=== PATIENT | male | born 1950 | race Caucasian/White ===

== ENCOUNTER 2016-06-30 19:45 | Inpatient (IN) | payer MEDICARE, BC ==
[2016-06-30] MEDS ORDERED: SODIUM CHLORIDE 0.9% 500 ML IV STA (20:47)
--- NOTE | 2016-06-30 21:20 | ED ---
Weakness HPI - General Chief complaint: Weakness Stated complaint: Poss Stroke Time Seen by Provider: 06/30/16 20:46 Source: patient, RN notes reviewed Mode of arrival: wheelchair Limitations: no limitations - History of Present Illness Initial comments: This a 65-year-old male presents emergency Department with multiple complaints. Patient states he just generalized feels weak. Patient states this morning around 10:00 he became very lightheaded, dizzy and felt disorientated. Patient states he was walking into [place]. Patient states that he went to breakfast prior to this and felt fine and came home when symptoms started. He states right before symptoms started he had an episode of diarrhea and he has some mild abdominal cramping. Patient denies any dysuria, hematuria. Patient states he is a diabetic and checked his blood sugar at that time and which was 2 :30. Patient states he did have one episode of mild chest discomfort but states that it only lasted a few seconds he says is a dull ache. Patient denies shortness of breath this time. Patient does have a history of DVTs, PE. Patient states he is on Coumadin and has a Crow filter. Patient denies any focal weakness or deficit. - Related Data Home Medications Medication Instructions Recorded Confirmed Erythromycin Base [Erythromycin] 500 mg PO BID 06/30/16 06/30/16 Insulin Glulisine [Apidra Solostar] 35 unit SQ BID 06/30/16 06/30/16 Levothyroxine Sodium [Synthroid] 100 mcg PO DAILY 06/30/16 06/30/16 Losartan [Cozaar] 25 mg PO DAILY 06/30/16 06/30/16 Metoprolol Succinate (ER) [Toprol 25 mg PO DAILY 06/30/16 06/30/16 Xl] Pioglitazone [Actos] 15 mg PO DAILY 06/30/16 06/30/16 Warfarin [Coumadin] 7.5 mg PO DAILY 06/30/16 06/30/16 Allergies Allergy/AdvReac Type Severity Reaction Status Date / Time butorphanol [From Stadol] Allergy Severe Unknown Verified 06/30/16 20:55 Review of Systems ROS Statement: Those systems with pertinent positive or pertinent negative responses have been documented in the HPI. ROS Other: All systems not noted in ROS Statement are negative. Past Medical History Past Medical History: Diabetes Mellitus, Pulmonary Embolus (PE) History of Any Multi-Drug Resistant Organisms: None Reported Past Surgical History: Hernia Repair Additional Past Surgical History / Comment(s): green filled filter to heart, irregular heart beat Past Psychological History: Depression Smoking Status: Former smoker Past Alcohol Use History: None Reported Past Drug Use History: None Reported General Exam Limitations: no limitations General appearance: alert, in no apparent distress Head exam: Present: atraumatic, normocephalic, normal inspection Eye exam: Present: normal appearance, PERRL, EOMI. Absent: scleral icterus, conjunctival injection, periorbital swelling ENT exam: Present: normal exam, normal oropharynx, mucous membranes moist. Absent: TM's normal bilaterally, normal external ear exam, other (Tenderness to the left mastoid) Neck exam: Present: normal inspection, full ROM. Absent: tenderness, meningismus, lymphadenopathy Respiratory exam: Present: normal lung sounds bilaterally. Absent: respiratory distress, wheezes, rales, rhonchi, stridor Cardiovascular Exam: Present: regular rate, normal rhythm, normal heart sounds. Absent: systolic murmur, diastolic murmur, rubs, gallop, clicks GI/Abdominal exam: Present: soft, normal bowel sounds. Absent: distended, tenderness, guarding, rebound, rigid Back exam: Absent: CVA tenderness (R), CVA tenderness (L) Neurological exam: Present: alert, oriented X3, CN II-XII intact, reflexes normal, other (Finger to nose intact bilaterally without overshooting). Absent : motor sensory deficit Skin exam: Present: warm, dry, intact, normal color. Absent: rash Course Vital Signs 06/30/16 19:50 Temperature 97.4 F L Pulse Rate 91 Respiratory 18 Rate Blood Pressure 150/72 O2 Sat by Pulse 96 Oximetry EKG Findings - EKG Comments: EKG Findings:: EKG performed at 20:11 normal sinus rhythm with a rate of 89, OK interval 1:30, QRS duration 104, QT/QTC 384/467 Medical Decision Making - Medical Decision Making 65-year-old male presented for dizziness, generalized weakness not Feeling well. Patient be admitted to the hospital for possible TIA and treatment at this time for mastoiditis. - Lab Data Result diagrams: 06/30/16 21:50 06/30/16 21:50 Lab Results 04/10/17 04/10/17 04/10/17 Range/Units 21:50 21:50 21:50 WBC 6.9 (3.8-10.6) k/uL RBC 5.09 (4.30-5.90) m/uL Hgb 15.9 (13.0-17.5) gm/dL Hct 46.0 (39.0-53.0) % MCV 90.3 (80.0-100.0) fL MCH 31.2 (25.0-35.0) pg MCHC 34.5 (31.0-37.0) g/dL RDW 14.3 (11.5-15.5) % Plt Count 146 L (150-450) k/uL Neutrophils % 66 % Lymphocytes % 23 % Monocytes % 8 % Eosinophils % 1 % Basophils % 1 % Neutrophils # 4.6 (1.3-7.7) k/uL Lymphocytes # 1.6 (1.0-4.8) k/uL Monocytes # 0.5 (0-1.0) k/uL Eosinophils # 0.1 (0-0.7) k/uL Basophils # 0.0 (0-0.2) k/uL PT (9.0-12.0) sec INR (<1.1) APTT (22.0-30.0) sec Sodium 137 (137-145) mmol/L Potassium 3.9 (3.5-5.1) mmol/L Chloride 104 (98-107) mmol/L Carbon Dioxide 25 (22-30) mmol/L Anion Gap 8 mmol/L BUN 19 (9-20) mg/dL Creatinine 1.06 (0.66-1.25) mg/dL Est GFR (MDRD) Af Amer >60 (>60 ml/min/1.73 sqM) Est GFR (MDRD) Non-Af >60 (>60 ml/min/1.73 sqM) Glucose 238 H (74-99) mg/dL Calcium 9.1 (8.4-10.2) mg/dL Magnesium 2.0 (1.6-2.3) mg/dL Total Bilirubin 0.7 (0.2-1.3) mg/dL AST 20 (17-59) U/L ALT 32 (21-72) U/L Alkaline Phosphatase 53 (38-126) U/L Total Creatine Kinase 103 (55-170) U/L CK-MB (CK-2) 0.9 (0.0-2.4) ng/mL CK-MB (CK-2) Rel Index 0.9 Troponin I <0.012 (0.000-0.034) ng/mL Total Protein 6.2 L (6.3-8.2) g/dL Albumin 3.8 (3.5-5.0) g/dL Urine Color Urine Appearance (Clear) Urine pH (5.0-8.0) Ur Specific [place] (1.001-1.035) Urine Protein (Negative) Urine Glucose (UA) (Negative) Urine Ketones (Negative) Urine Blood (Negative) Urine Nitrite (Negative) Urine Bilirubin (Negative) Urine Urobilinogen (<2.0) mg/dL Ur Leukocyte Esterase (Negative) Urine RBC (0-5) /hpf Urine Bacteria (None) /hpf Urine Mucus (None) /hpf Influenza Type A RNA (Not Detectd) Influenza Type B (PCR) (Not Detectd) 06/30/16 06/30/16 06/30/16 Range/Units 21:50 21:50 21:50 WBC (3.8-10.6) k/uL RBC (4.30-5.90) m/uL Hgb (13.0-17.5) gm/dL Hct (39.0-53.0) % MCV (80.0-100.0) fL MCH (25.0-35.0) pg MCHC (31.0-37.0) g/dL RDW (11.5-15.5) % Plt Count (150-450) k/uL Neutrophils % % Lymphocytes % % Monocytes % % Eosinophils % % Basophils % % Neutrophils # (1.3-7.7) k/uL Lymphocytes # (1.0-4.8) k/uL Monocytes # (0-1.0) k/uL Eosinophils # (0-0.7) k/uL Basophils # (0-0.2) k/uL PT 16.8 H (9.0-12.0) sec INR 1.7 (<1.1) APTT 25.7 (22.0-30.0) sec Sodium (137-145) mmol/L Potassium (3.5-5.1) mmol/L Chloride (98-107) mmol/L Carbon Dioxide (22-30) mmol/L Anion Gap mmol/L BUN (9-20) mg/dL Creatinine (0.66-1.25) mg/dL Est GFR (MDRD) Af Amer (>60 ml/min/1.73 sqM) Est GFR (MDRD) Non-Af (>60 ml/min/1.73 sqM) Glucose (74-99) mg/dL Calcium (8.4-10.2) mg/dL Magnesium (1.6-2.3) mg/dL Total Bilirubin (0.2-1.3) mg/dL AST (17-59) U/L ALT (21-72) U/L Alkaline Phosphatase (38-126) U/L Total Creatine Kinase (55-170) U/L CK-MB (CK-2) (0.0-2.4) ng/mL CK-MB (CK-2) Rel Index Troponin I (0.000-0.034) ng/mL Total Protein (6.3-8.2) g/dL Albumin (3.5-5.0) g/dL Urine Color Yellow Urine Appearance Clear (Clear) Urine pH 5.5 (5.0-8.0) Ur Specific [place] 1.023 (1.001-1.035) Urine Protein Trace H (Negative) Urine Glucose (UA) 4+ H (Negative) Urine Ketones Negative (Negative) Urine Blood Trace H (Negative) Urine Nitrite Negative (Negative) Urine Bilirubin Negative (Negative) Urine Urobilinogen <2.0 (<2.0) mg/dL Ur Leukocyte Esterase Negative (Negative) Urine RBC <1 (0-5) /hpf Urine Bacteria Rare H (None) /hpf Urine Mucus Rare H (None) /hpf Influenza Type A RNA Not Detected (Not Detectd) Influenza Type B (PCR) Not Detected (Not Detectd) Disposition Clinical Impression: TIA (transient ischemic attack), Mastoiditis Disposition: ADMITTED IP TO THIS HOSP Condition: Good
--- NOTE | 2016-06-30 21:27 | XR ---
EXAMINATION TYPE: XR chest 2V DATE OF EXAM: 06/30/2016 9:18 PM COMPARISON: NONE HISTORY: Weakness and dizziness today. TECHNIQUE: Frontal and lateral views of the chest are obtained. FINDINGS: There is patchy left basilar atelectasis and/or infiltrate. Right lung is clear. No pleura l effusion or pneumothorax is seen bilaterally. The cardiac silhouette size is within normal limits. The osseous structures are intact. IMPRESSION: Patchy left basilar atelectasis and/or infiltrate.
--- NOTE | 2016-06-30 21:28 | CT ---
EXAMINATION TYPE: CT brain wo con DATE OF EXAM: 06/30/2016 9:16 PM HISTORY: Weakness today. Dizziness. CT DLP: 1060.60 mGycm. Automated Exposure Control for Dose Reduction was Utilized. TECHNIQUE: CT scan of the head is performed without contrast. COMPARISON: None. FINDINGS: There is no acute intracranial hemorrhage or midline shift identified. There is diffuse v entricular and sulcal prominence consistent with diffuse age-related cerebral atrophy. There is low- attenuation in the periventricular white matter consistent with chronic small vessel ischemic change. Air-fluid level is noted in visualized portion of left maxillary sinus. The globes are intact and th e remainder of the visualized sinuses are clear. Patchy opacification of left mastoid air cells is present. IMPRESSION: No acute intracranial hemorrhage or midline shift. There is mild diffuse age-related ce rebral atrophy and chronic small vessel ischemic change noted. Acute left maxillary sinus disease. P atchy opacity left mastoid air cells raises concern for left-sided mastoiditis, clinical correlation advised.
[2016-06-30 22:07] LABS: Basophils % (A) 1 %; CHCM 34.6; Eosinophils # (A) 0.1 k/uL (0-0.7); Eosinophils % (A) 1 %; HDW 2.83; HGB 15.9 gm/dL (13.0-17.5); Luc # (Auto) 0.14; Luc % (Auto) 2; Lymphocytes # (A) 1.6 k/uL (1.0-4.8); Lymphocytes % (A) 23 %; MCH 31.2 pg (25.0-35.0); MCHC 34.5 g/dL (31.0-37.0); MCV 90.3 fL (80.0-100.0); Monocytes # (A) 0.5 k/uL (0-1.0); Monocytes % (A) 8 %; Neutrophils # (A) 4.6 k/uL (1.3-7.7); Neutrophils % (A) 66 %; RBC 5.09 m/uL (4.30-5.90); RDW 14.3 % (11.5-15.5); WBC 6.9 k/uL (3.8-10.6); WBC (Perox) 6.78
[2016-06-30 22:16] LABS: Partial Thromboplastin Time 25.7 sec (22.0-30.0)
[2016-06-30 22:18] LABS: INR 1.7 (<1.1); Prothrombin Time 16.8 sec (9.0-12.0)
[2016-06-30 22:20] LABS: Appearance,Urine Clear (Clear); Bacteria,Urine Rare /hpf; Bilirubin,Urine Negative (Negative); Glucose,Urine (UA) 4+ (Negative); Ketones,Urine Negative (Negative); Leukocyte Esterase,Urine Negative (Negative); Mucus,Urine Rare /hpf; Nitrite,Urine Negative (Negative); PH, Urine 5.5 (5.0-8.0); Particle Count 490; Protein,Urine Trace (Negative); RBC,Urine <1 /hpf (0-5); Specific Gravity,Urine 1.023 (1.001-1.035); UA Billing (MACRO vs. MICRO) MICRO; Urobilinogen,Urine <2.0 mg/dL (<2.0)
[2016-06-30 22:25] LABS: ALT 32 U/L (21-72); AST 20 U/L (17-59); Alkaline Phosphatase 53 U/L (38-126); Anion Gap 8 mmol/L; Blood Urea Nitrogen 19 mg/dL (9-20); Calcium 9.1 mg/dL (8.4-10.2); Carbon Dioxide 25 mmol/L (22-30); Chloride 104 mmol/L (98-107); Glucose 238 mg/dL (74-99); Non-African American GFR(MDRD) >60 (>60 ml/min/1.73 sqM); Potassium 3.9 mmol/L (3.5-5.1); Sodium 137 mmol/L (137-145); Total Bilirubin 0.7 mg/dL (0.2-1.3); Total Protein 6.2 g/dL (6.3-8.2)
[2016-06-30 22:30] LABS: Creatine Kinase 103 U/L (55-170)
[2016-06-30 22:43] LABS: Creatine Kinase MB 0.9 ng/mL (0.0-2.4); Troponin I <0.012 ng/mL (0.000-0.034)
[2016-06-30] MEDS ORDERED: IV VANCOMYCIN PER PHARMACY 1 EACH MISC MISCELLANE PRN (23:10)
[2016-06-30] MEDS ORDERED: ASPIRIN 325 MG TAB PO STA (23:13)
[2016-06-30] MEDS ORDERED: VANCOMYCIN 1,750 MG in SODIUM CHLORIDE 0.9% 250 ML IVPB ONE (23:15)
[2016-07-01 00:13] LABS: Glucose,Whole Blood 156 mg/dL (75-99)
[2016-07-01 06:00] LABS: Glucose,Whole Blood 190 mg/dL (75-99)
[2016-07-01] MEDS: INSULIN LISPRO (humaLOG) 300 UNIT/3 ML VIAL SQ SCH ×5 (08:24→21:55)
[2016-07-01] MEDS ORDERED: VANCOMYCIN 1,750 MG in SODIUM CHLORIDE 0.9% 250 ML IVPB SCH ×2 (09:00→12:00)
--- NOTE | 2016-07-01 10:38 | US ---
EXAMINATION TYPE: US carotid duplex BILAT DATE OF EXAM: 07/01/2016 12:47 AM COMPARISON: NONE CLINICAL HISTORY: Stenosis. Dizziness EXAM MEASUREMENTS: RIGHT: Peak Systolic Velocity (PSV) cm/sec ----- Right CCA: 62.5 ----- Right ICA: 79.4 ----- Right ECA: 93.5 ICA/CCA ratio: 1.3 RIGHT: End Diastole cm/sec ----- Right CCA: 9.0 ----- Right ICA: 26.0 ----- Right ECA: 6.3 LEFT: Peak Systolic Velocity (PSV) cm/sec ----- Left CCA: 53.1 ----- Left ICA: 85.3 ----- Left ECA: 40.5 ICA/CCA ratio: 1.6 LEFT: End Diastole cm/sec ----- Left CCA: 11.1 ----- Left ICA: 20.6 ----- Left ECA: 6.3 VERTEBRALS (direction of flow): Right Vertebral: Antegrade Left Vertebral: Antegrade Tortuous vessels bilaterally. Mild plaque visualized bilaterally. No elevated velocities IMPRESSION: No hemodynamic significant stenosis of the proximal internal carotid arteries bilaterall y, an indirect measurement of carotid stenosis
[2016-07-01 12:11] LABS: Hemoglobin A1C 9.8 % (4.2-6.1)
[2016-07-01 12:35] LABS: Glucose,Whole Blood 321 mg/dL (75-99)
--- NOTE | 2016-07-01 16:39 | P.HPIM ---
History of Present Illness H&P Date: 07/01/16 Chief Complaint: Dizziness 65-year-old gentleman with history of hypertension diabetes comes in the hospital with the sudden onset complains of dizziness and gait instability for a few hours prior to admission. Patient states that he was in good health prior to this episode. Was concern came in to the emergency room. Patient underwent a computed tomography scan of the head which did not reveal any acute abnormalities in the brain however there was findings of sinusitis and mastoiditis to be correlated clinically. Patient denies having any fevers chills headaches blurry vision nausea vomiting. Does state to have some decreased hearing bilaterally in the recent times. At the time of my evaluation patient states that he is feeling significantly better complaints reported as of now. Patient denies having any history of previous strokes. Symptoms are not reproducible with the change in movement of his head or with the going from sitting to standing or from laying down or sitting up. Orthostatics were also negative. Gait was assessed at bedside and did not seem to have any problems with ambulation time EKG did not reveal any ST-T wave changes Review of Systems All systems: negative (Noted in HPI) Past Medical History Past Medical History: Diabetes Mellitus, Deep Vein Thrombosis (DVT), Eye Disorder, Pulmonary Embolus (PE), Thyroid Disorder Additional Past Medical History / Comment(s): Current bilateral groin bacterial infection-on ABX, rapid heart beat at times, on medication to protect kidneys, not hypertensive, IDDM type II, hypothyroid, diverticular dx, macular hole L retina d/t injury as a child. History of Any Multi-Drug Resistant Organisms: None Reported Past Surgical History: Hernia Repair, Orthopedic Surgery, Tonsillectomy Additional Past Surgical History / Comment(s): green filled filter, umbilical hernia repair, L knee arthroscopy, bilateral inguinal hernia repairs, colonoscopy. Additional Past Anesthesia/Blood Transfusion Reaction / Comment(s): Pt was told by anesthesiologist to never receive Stadol again-had difficulty "getting me out of it." Past Psychological History: Depression Additional Psychological History / Comment(s): Pt states he is depressed from the recent loss of his spouse (03/28/16). He denies suicidal thoughts or plans. He now lives alone with 1 cat. He is independent. Smoking Status: Former smoker Past Alcohol Use History: None Reported Additional Past Alcohol Use History / Comment(s): Pt started smoking in 1966 and quit in 1980. Past Drug Use History: None Reported - Past Family History Father Family Medical History: Myocardial Infarction ([place]) Additional Family Medical History / Comment(s): Father at the age of 59yrs from a [place] Mother Additional Family Medical History / Comment(s): Mother in her mid 60's from CHF Medications and Allergies Home Medications Medication Instructions Recorded Confirmed Type Erythromycin Base [Erythromycin] 500 mg PO BID 06/30/16 06/30/16 History Insulin Glulisine [Apidra Solostar] 35 unit SQ BID 06/30/16 06/30/16 History Levothyroxine Sodium [Synthroid] 100 mcg PO DAILY 06/30/16 06/30/16 History Losartan [Cozaar] 25 mg PO DAILY 06/30/16 06/30/16 History Metoprolol Succinate (ER) [Toprol 25 mg PO DAILY 06/30/16 06/30/16 History Xl] Pioglitazone [Actos] 15 mg PO DAILY 06/30/16 06/30/16 History Warfarin [Coumadin] 7.5 mg PO DAILY 06/30/16 06/30/16 History Allergies Allergy/AdvReac Type Severity Reaction Status Date / Time butorphanol [From Stadol] Allergy Severe Unknown Verified 06/30/16 20:55 Physical Exam Vitals: Vital Signs Temp Pulse Resp BP Pulse Ox 07/01/16 12:13 97.3 F L 85 16 148/75 07/01/16 10:13 83 16 150/79 94 L 07/01/16 08:13 98 F 88 16 150/79 92 L 07/01/16 06:16 82 16 151/86 94 L Intake and Output 07/01/16 07/01/16 07/01/16 06:59 14:59 22:59 Output Total 600 Balance -600 Output: Urine 600 Other: # Voids 2 Physical exam Gen. appearance oriented 3 in no distress Neck is supple no JVD Lungs good air entry clear to auscultation no rhonchi or wheezing Heart S1-S2 heard regular rate and rhythm no murmurs appreciated Abdomen is soft nontender no organomegaly bowel sounds are intact Neurologically cranial nerves II-12 grossly intact no focal motor or sensory deficits noted No dysdiadochokinesia appreciated gait appears to be within normal limits Skin no abnormalities appreciated Results CBC & Chem 7: 06/30/16 21:50 06/30/16 21:50 Labs: Abnormal Lab Results - Last 24 Hours (Table) 07/01/16 07/01/16 Range/Units 05:58 12:06 POC Glucose (mg/dL) 190 H 321 H (75-99) mg/dL Thrombosis Risk Factor Assmnt - Choose All That Apply Any of the Below Risk Factors Present?: Yes Each Factor Represents 1 point: Obesity (BMI >25) Other Risk Factors: Yes Each Risk Factor Represents 2 Points: Age 61-74 years Other congenital or acquired thrombophilia - If yes, enter type in comment: No Thrombosis Risk Factor Assessment Total Risk Factor Score: 3 Thrombosis Risk Factor Assessment Level: Moderate Risk Assessment and Plan Plan: #1 gait instability and dizziness that was persistent for a short period of time rule out acute CVA. Other differentials include hypoglycemia. #2 history of diabetes myelitis to #3 history of pulmonary embolism in the past on anticoagulation para graft #4 obesity #5 remote history of tobacco use #6 history of hypertension Plan Continue telemetry monitoring. Carotid studies were ordered. A neurology consultation will be obtained if this was a TIA kind of episode patient will be continued on aspirin and a statin. Patient's home regimen will be started ensure no further episodes of hypo-or hyperglycemia. Patient is encouraged to ambulate. An echocardiogram will also be obtained at the time Repeat labs in the a.m. Here for likely need another 24 hours and thereafter be discharged home.
[2016-07-01 17:31] LABS: Glucose,Whole Blood 293 mg/dL (75-99)
[2016-07-01] MEDS: LEVOTHYROXINE 100 MCG TAB PO SCH (17:32)
[2016-07-01] MEDS ORDERED: WARFARIN 7.5 MG TAB PO SCH (18:00)
[2016-07-01 21:06] LABS: Glucose,Whole Blood 135 mg/dL (75-99)
[2016-07-01] MEDS: AMOXIC-POT CLAV 500-125 MG 1 EACH TAB PO SCH (21:54)
[2016-07-01] MEDS: ASPIRIN 325 MG TAB PO SCH ×2 (21:54→22:02)
[2016-07-02 06:37] LABS: Glucose,Whole Blood 199 mg/dL (75-99)
[2016-07-02] MEDS: INSULIN LISPRO (humaLOG) 300 UNIT/3 ML VIAL SQ SCH ×3 (07:06→11:57)
[2016-07-02] MEDS: LEVOTHYROXINE 100 MCG TAB PO SCH (07:06)
[2016-07-02] MEDS ORDERED: VANCOMYCIN TROUGH DUE 1 EACH MISC MISCELLANE ONE (08:00)
[2016-07-02 08:15] LABS: Basophils % (A) 1 %; CH 30.9; CHCM 34.2; Eosinophils # (A) 0.1 k/uL (0-0.7); Eosinophils % (A) 2 %; HDW 2.86; HGB 15.8 gm/dL (13.0-17.5); Luc % (Auto) 2; Lymphocytes # (A) 1.4 k/uL (1.0-4.8); Lymphocytes % (A) 25 %; MCH 29.9 pg (25.0-35.0); MCHC 32.8 g/dL (31.0-37.0); MCV 91.1 fL (80.0-100.0); Monocytes # (A) 0.3 k/uL (0-1.0); Monocytes % (A) 6 %; Neutrophils # (A) 3.7 k/uL (1.3-7.7); Neutrophils % (A) 65 %; RBC 5.27 m/uL (4.30-5.90); RDW 14.3 % (11.5-15.5); WBC 5.7 k/uL (3.8-10.6); WBC (Perox) 5.96
[2016-07-02 08:16] LABS: INR 1.8 (<1.1); Prothrombin Time 17.1 sec (9.0-12.0)
[2016-07-02 08:18] LABS: ALT 34 U/L (21-72); AST 24 U/L (17-59); Alkaline Phosphatase 44 U/L (38-126); Anion Gap 7 mmol/L; Blood Urea Nitrogen 16 mg/dL (9-20); Calcium 9.1 mg/dL (8.4-10.2); Carbon Dioxide 24 mmol/L (22-30); Chloride 107 mmol/L (98-107); Cholesterol 174 mg/dL (<200); Glucose 216 mg/dL (74-99); HDL Cholesterol 41 mg/dL (40-60); Non-African American GFR(MDRD) >60 (>60 ml/min/1.73 sqM); Sodium 138 mmol/L (137-145); Total Bilirubin 0.8 mg/dL (0.2-1.3); Total Protein 6.2 g/dL (6.3-8.2); Triglycerides 131 mg/dL (<150)
[2016-07-02] MEDS: AMOXIC-POT CLAV 500-125 MG 1 EACH TAB PO SCH (08:58)
[2016-07-02] MEDS ORDERED: LOSARTAN 25 MG TAB PO SCH (09:00)
[2016-07-02] MEDS ORDERED: PIOGLITAZONE 15 MG TAB PO SCH (09:00)
[2016-07-02] MEDS ORDERED: METOPROLOL SUCCINATE (ER) 25 MG TAB.ER.24H PO SCH (09:00)
--- NOTE | 2016-07-02 09:41 | CONS ---
DATE OF CONSULTATION: 07/01/2016 CHIEF COMPLAINT: Transient ischemic attack. HISTORY OF PRESENT ILLNESS: Mr. Carter is a pleasant 65-year-old male who is being evaluated by the Neurology Service per the request of Dr. Alfaro for a transient ischemic attack. The patient was brought into [facility] emergency room with the main complaint of generalized weakness, but he was also complaining of a sudden onset of gait instability. The patient describes his symptoms as disequilibrium and denies any vertigo or lateralizing weakness. His symptoms lasted several hours and resolved spontaneously. 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 He has had previous history of deep venous thrombosis and pulmonary embolism. CT of the brain was done in the emergency room which showed no acute intracranial abnormalities. There was generalized atrophy and small vessel ischemic changes. The study also showed evidence of left acute maxillary sinusitis and left mastoiditis. His carotid Doppler showed no hemodynamically significant stenosis. His comprehensive metabolic profile showed no significant abnormalities except for elevated serum glucose at 321. The patient does have history of diabetes that is not well controlled. His hemoglobin A1c was 9.8. His CBC was normal except for mild thrombocytopenia at 146,000. His INR was 1.7 on admission. His urinalysis was normal. At the time of my evaluation, the patient is sitting at the edge of his bed and appears to be in no acute distress. He denies any neurological symptoms at this time. PAST MEDICAL HISTORY: Hereditary coagulopathy, diabetes, history of pulmonary embolism and deep venous thrombosis, depression, history of Crow filter placement, history of hernia repair. SOCIAL HISTORY: The patient is a former smoker. He denies any alcohol or drug use. HOME MEDICATIONS: Reviewed in the chart. ALLERGIES: STADOL. REVIEW OF SYSTEMS: CONSTITUTIONAL: Negative. EYES: Negative. ENT: Negative. CARDIOVASCULAR: Negative. RESPIRATORY: Negative. NEUROLOGICAL: As mentioned above. GASTROINTESTINAL: Negative. GENITOURINARY: Negative. DERMATOLOGICAL: Negative. PSYCHIATRIC: Positive for history of depression. HEMATOLOGY/ONCOLOGY: As mentioned above. MUSCULOSKELETAL: Negative. ENDOCRINE: Positive for diabetes. PHYSICAL EXAM: Vital signs show a temperature of 98.0, pulse 83, respirations 16, blood pressure 150/79. GENERAL APPEARANCE: The patient is a well-developed male who appears to be in no acute distress. HEENT: Normocephalic, atraumatic, no facial asymmetry is seen. Extraocular muscles are intact. Neck is supple with no masses felt. CARDIOVASCULAR: Regular rate and rhythm. ABDOMEN: Nontender, nondistended. EXTREMITIES: Showed no edema or clubbing. NEUROLOGICAL EXAM: The patient is alert, aware, and oriented x3. Speech and language are normal. Strength is full in all 4 extremities. Sensory exam was normal to light touch in all 4 extremities. No facial asymmetry is seen on cranial nerve testing. No pronator drift is seen. [id number] testing showed no dysmetria. No tremors or seizure-like activity is seen. IMPRESSION: 1. Transient ischemic attack. 2. Transient episode of gait instability, resolved. 3. Mastoiditis. 4. Coagulopathy. 5. Uncontrolled diabetes. RECOMMENDATION: The patient does appear to have suffered a transient ischemic attack with a transient episode of gait instability. His ischemic event was likely affecting his posterior circulation. He is already on Coumadin for anticoagulation therapy. I do recommend that his INR be between 2 and 3. At this time, the patient is asymptomatic. I will order a fasting lipid panel, EEG and serum homocysteine level. His carotid Doppler showed no hemodynamically significant stenosis. As for his mastoiditis, he has been started on antibiotics. If any symptoms worsen, I do recommend an ENT consultation. The patient was counseled on the importance of serum glucose control, and he does see Dr. Ester Larios as an outpatient. He will follow up with her after discharge. Continue the rest of your current work-up and management. I will continue to follow with you. Further recommendations to follow. Thank you for allowing me to participate in the care of your patient. If you have any questions, please feel free to contact me.
--- NOTE | 2016-07-02 10:18 | ECHOF ---
Referral Reason:cva MEASUREMENTS -------- HEIGHT: 180.3 cm WEIGHT: 111.6 kg BP: 155/86 IVSd: 1.3 cm (0.6 - 1.1) LVIDd: 3.6 cm (3.9 - 5.3) LVPWd: 1.6 cm (0.6 - 1.1) IVSs: 1.7 cm LVIDs: 1.2 cm LVPWs: 1.8 cm Ao Diam: 3.7 cm (2.0 - 3.7) AV Cusp: 2.0 cm (1.5 - 2.6) LA Diam: 3.2 cm (2.7 - 3.8) MV EXCURSION: 19.783 mm (> 18.000) MV EF SLOPE: 121 mm/s (70 - 150) EPSS: 1.0 cm MV E Sam: 0.57 m/s MV DecT: 229 ms MV A Sam: 0.61 m/s MV E/A Ratio: 0.94 RAP: 5.00 mmHg RVSP: 9.06 mmHg FINDINGS -------- Sinus rhythm. This was a technically difficult study with suboptimal views. There is mild concentric left ventricular hypertrophy. Overall left ventricular systolic function is normal with, an EF between 55 - 60 %. The right ventricle is normal in size and function. The left atrium is normal in size. The right atrium is normal in size. 1.5mg of Definity was utilized for enhancement of images The aortic valve is trileaflet, and appears structurally normal. No aortic stenosis or regurgitation. The mitral valve leaflets are mildly thickened. There is trace mitral regurgitation. Trace tricuspid regurgitation present. The right ventricular systolic pressure, as measured by Doppler, is 9.06mmHg. Pulmonic valve appears structurally normal. The aortic root, ascending aorta and aortic arch are normal. The pericardium is normal. CONCLUSIONS -------- 1. Sinus rhythm. 2. The mitral valve leaflets are mildly thickened. 3. There is trace mitral regurgitation. 4. Trace tricuspid regurgitation present. 5. The right ventricular systolic pressure, as measured by Doppler, is 9.06mmHg. 6. Pulmonic valve appears structurally normal. 7. The aortic root, ascending aorta and aortic arch are normal. 8. The pericardium is normal. 9. This was a technically difficult study with suboptimal views. 10. There is mild concentric left ventricular hypertrophy. 11. Overall left ventricular systolic function is normal with, an EF between 55 - 60 %. 12. The right ventricle is normal in size and function. 13. The left atrium is normal in size. 14. The right atrium is normal in size. 15. 1.5mg of Definity was utilized for enhancement of images 16. The aortic valve is trileaflet, and appears structurally normal. No aortic stenosis or regurgitation. BUSINESS COMMUNICATIONS INSTRUCTOR: Delma Moyer RDCS
[2016-07-02 11:15] VITALS: PULSE 60
[2016-07-02 11:22] VITALS: BMI 35.4
[2016-07-02 11:52] LABS: Glucose,Whole Blood 124 mg/dL (75-99)
[2016-07-02 12:13] VITALS: BP 133/71; RESP 15; TEMP 97
--- NOTE | 2016-07-02 12:17 | P.DS ---
Providers Date of admission: 07/01/16 00:20 Attending physician: Wendi Alfaro Primary care physician: Carlos [facility] Course: 65-year-old gentleman with history of hypertension diabetes comes in the hospital with the sudden onset complains of dizziness and gait instability for a few hours prior to admission. Patient states that he was in good health prior to this episode. Was concern came in to the emergency room. Patient underwent a computed tomography scan of the head which did not reveal any acute abnormalities in the brain however there was findings of sinusitis and mastoiditis to be correlated clinically. Patient denies having any fevers chills headaches blurry vision nausea vomiting. Does state to have some decreased hearing bilaterally in the recent times. At the time of my evaluation patient states that he is feeling significantly better complaints reported as of now. Patient denies having any history of previous strokes. Symptoms are not reproducible with the change in movement of his head or with the going from sitting to standing or from laying down or sitting up. Orthostatics were also negative. Gait was assessed at bedside and did not seem to have any problems with ambulation time EKG did not reveal any ST-T wave changes 07/02/2016 Patient was able to really without much difficulty. Denies having any headaches, blurry vision, pain or tenderness posterior to his ears any nasal drainage nausea vomiting change in vision chest pain difficulty breathing abdominal pain. Physical exam Gen. appearance oriented 3 in no distress Neck is supple no JVD Lungs good air entry clear to auscultation no rhonchi or wheezing Heart S1-S2 heard regular rate and rhythm no murmurs appreciated Abdomen is soft nontender no organomegaly bowel sounds are intact Neurologically cranial nerves II-12 grossly intact no focal motor or sensory deficits noted No dysdiadochokinesia appreciated gait appears to be within normal limits Skin no abnormalities appreciated Assessment and Plan Plan: #1 TIA, gait instability which is resolved at this time. #2 history of DM2 #3 history of pulmonary embolism in the past on anticoagulation #4 obesity #5 remote history of tobacco use #6 history of hypertension Stroke workup including echocardiogram and carotid study were done. Patient was noted to have a normal ejection fraction no signs of atrial fibrillation was noted. A antiplatelet agent with aspirin 81 mg will be added. Patient is currently on anticoagulation for pulmonary embolism. To continue statin. 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 Referral to ENT specialist is given. Patient is to follow-up with Dr. gillespie Patient Condition at Discharge: Good Plan - Discharge Summary New Discharge Prescriptions: Amoxic-Pot Clav 500-125 mg [Augmentin 500-125 mg] 1 each PO BID #20 tab Aspirin [Adult Low Dose Aspirin EC] 81 mg PO DAILY #30 tablet. Atorvastatin [Lipitor] 40 mg PO DAILY #30 tablet Discharge Medication List Erythromycin Base [Erythromycin] 500 mg PO BID 06/30/16 [History] Insulin Glulisine [Apidra Solostar] 35 unit SQ BID 06/30/16 [History] Levothyroxine Sodium [Synthroid] 100 mcg PO DAILY 06/30/16 [History] Losartan [Cozaar] 25 mg PO DAILY 06/30/16 [History] Metoprolol Succinate (ER) [Toprol XL] 25 mg PO DAILY 06/30/16 [History] Pioglitazone [Actos] 15 mg PO DAILY 06/30/16 [History] Warfarin [Coumadin] 7.5 mg PO DAILY 06/30/16 [History] Amoxic-Pot Clav 500-125 mg [Augmentin 500-125 mg] 1 each PO BID #20 tab [Rx] Aspirin [Adult Low Dose Aspirin EC] 81 mg PO DAILY #30 tablet. 07/02/16 [Rx] Atorvastatin [Lipitor] 40 mg PO DAILY #30 tablet 07/02/16 [Rx] Follow up Appointment(s)/Referral(s): Carlos Cardenas MD [Primary Care Provider] - 1-2 days Joel Gillespie MD [STAFF PHYSICIAN] - 1 Week Jasiel Hunt MD [STAFF PHYSICIAN] - 1 Week Discharge Disposition: HOME SELF-CARE
[2016-07-02] MEDS: ASPIRIN 325 MG TAB PO SCH (12:39)
--- NOTE | 2016-07-08 08:14 | EEG ---
DATE OF SERVICE: 07/02/2016 REASON FOR TESTING: Transient ischemic attack. AGE: 65Y DESCRIPTION OF THE PROCEDURE: This EEG was performed using a 21-channel digital electroencephalograph, following the international 10 - 20 system. DESCRIPTION OF THE RECORDING: From the beginning of the tracing, and with the patient's eyes closed, the background rhythm was mostly consisting of 9 to 10 Hz alpha frequency in the posterior occipital leads. No obvious asymmetry is seen. Photic stimulation was performed with a good driving response seen. No pathological waves were elicited. Hyperventilation was not performed. Later in the tracing, the patient does reach stage II of sleep and occasional sleep spindles are seen. No epileptiform discharges were seen. His EKG lead showed a regular rate and rhythm. INTERPRETATION: This asleep and awake EEG can be considered within normal limits. There was no asymmetry seen. No epileptiform discharges were noticed. The absence of epileptiform discharges does not rule out the diagnosis of epilepsy, therefore, clinical correlation is recommended.
== END 2016-07-02 14:48 | disposition home or self-care (01) | DRG 69 ==
LOC: EC 19:45 → 6SEL 07-01 00:20
PROVIDERS: ADMIT Hospitalist; ATTEND Hospitalist
DX: G45.9 Transient cerebral ischemic attack, unspecified (principal); D69.6 Thrombocytopenia, unspecified; D68.2 Hereditary deficiency of other clotting factors; E11.65 Type 2 diabetes mellitus with hyperglycemia; H70.92 Unspecified mastoiditis, left ear; J01.00 Acute maxillary sinusitis, unspecified; J32.9 Chronic sinusitis, unspecified; E66.9 Obesity, unspecified; Z68.35 Body mass index [BMI] 35.0-35.9, adult; F32.9 Major depressive disorder, single episode, unspecified; I10 Essential (primary) hypertension; Z87.891 Personal history of nicotine dependence; Z95.9 Presence of cardiac and vascular implant and graft, unspecified; Z86.718 Personal history of other venous thrombosis and embolism; Z86.711 Personal history of pulmonary embolism; Z88.8 Allergy status to other drugs, medicaments and biological substances; Z79.01 Long term (current) use of anticoagulants; Z79.84 Long term (current) use of oral hypoglycemic drugs; Z79.4 Long term (current) use of insulin; Z79.899 Other long term (current) drug therapy
CPT/HCPCS: 36415; 70450; 71020; 80053; 80061; 80202; 81001; 82550; 82553; 83036; 83090; 83735; 84443; 84484; 85025; 85610; 85730; 87502; 93005; 93306; 93880; 95819; 96361; 96365; 96366; 99285

== ENCOUNTER 2016-09-12 14:38 | Emergency (ER) | payer MEDICARE, BC ==
--- NOTE | 2016-09-12 15:04 | ED ---
ENT HPI - General Chief complaint: ENT Stated complaint: Broken Blood vessel in eye Time Seen by Provider: 09/12/16 14:50 Source: patient, EMS, RN notes reviewed Mode of arrival: EMS Limitations: no limitations - History of Present Illness Initial comments: 66-year-old male presents emergency Department with chief complaint of right eye redness. Patient states that he believes he broke a blood vessel in his right eye. Patient states that he got home from his doctor's appointment today and which his INR was 1.6 and was told to take an extra Coumadin. Patient states that shortly after he noticed the redness and swelling to his right eye. Patient states that he is minimal blurred vision states it just feels irritated. Patient denies any trauma. Patient states that he takes Coumadin for DVTs. Patient denies headache, dizziness. Denies any pain with ocular movements. 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 Mendoza. - Related Data Home Medications Medication Instructions Recorded Confirmed Insulin Glulisine [Apidra Solostar] See Protocol SQ AC-TID 06/30/16 09/12/16 Levothyroxine Sodium [Synthroid] 100 mcg PO DAILY 06/30/16 09/12/16 Losartan [Cozaar] 25 mg PO DAILY 06/30/16 09/12/16 Metoprolol Succinate (ER) [Toprol 25 mg PO DAILY 06/30/16 09/12/16 XL] Warfarin [Coumadin] 7.5 mg PO HS 06/30/16 09/12/16 Atorvastatin [Lipitor] 40 mg PO HS 09/12/16 09/12/16 Insulin Degludec [Tresiba 46 unit SQ AC-LUNCH 09/12/16 09/12/16 Flextouch U-100] Previous Rx's Medication Instructions Recorded Aspirin [Adult Low Dose Aspirin EC] 81 mg PO DAILY #30 tablet. 07/02/16 Allergies Allergy/AdvReac Type Severity Reaction Status Date / Time butorphanol [From Stadol] Allergy Severe Unknown Verified 09/12/16 15:10 Review of Systems ROS Statement: Those systems with pertinent positive or pertinent negative responses have been documented in the HPI. ROS Other: All systems not noted in ROS Statement are negative. 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 History of Any Multi-Drug Resistant Organisms: None Reported Past Surgical History: Hernia Repair, Orthopedic Surgery, Tonsillectomy Additional Past Surgical History / Comment(s): green filled filter, umbilical hernia repair, L knee arthroscopy, bilateral inguinal hernia repairs, colonoscopy. Additional Past Anesthesia/Blood Transfusion Reaction / Comment(s): Pt was told by anesthesiologist to never receive Stadol again-had difficulty "getting me out of it." Smoking Status: Former smoker Past Alcohol Use History: None Reported Past Drug Use History: None Reported - Past Family History Father Family Medical History: Myocardial Infarction ([place]) Additional Family Medical History / Comment(s): Father at the age of 59yrs from a [place] Mother Additional Family Medical History / Comment(s): Mother in her mid 60's from CHF General Exam Limitations: no limitations General appearance: alert, in no apparent distress Head exam: Present: atraumatic, normocephalic, normal inspection Eye exam: Present: PERRL, EOMI, other (No pain with ocular movements). Absent: normal appearance (Large subconjunctival hemorrhage of the right eye with some elevation of the conjunctiva), scleral icterus, conjunctival injection, periorbital swelling, periorbital tenderness ENT exam: Present: normal exam, normal oropharynx, mucous membranes moist, TM's normal bilaterally, normal external ear exam Neck exam: Present: normal inspection. Absent: tenderness, meningismus, lymphadenopathy Respiratory exam: Present: normal lung sounds bilaterally. Absent: respiratory distress, wheezes, rales, rhonchi, stridor Cardiovascular Exam: Present: regular rate, normal rhythm, normal heart sounds. Absent: systolic murmur, diastolic murmur, rubs, gallop, clicks Neurological exam: Present: alert, oriented X3, CN II-XII intact, reflexes normal. Absent: motor sensory deficit Course Vital Signs 09/12/16 14:46 Temperature 99.2 F Pulse Rate 100 Respiratory 20 Rate Blood Pressure 162/87 O2 Sat by Pulse 94 L Oximetry Medical Decision Making - Medical Decision Making 58-year-old male has a large subconjunctival hemorrhage. I did discuss case with Dr. franklin. Patient will follow palpation he does not need any further treatment is time in emergency department. 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 Patient's has had his INR checked which was 1.6 this morning. Disposition Clinical Impression: Subconjunctival hemorrhage Disposition: HOME SELF-CARE Condition: Stable Instructions: Subconjunctival Hemorrhage (ED) Additional Instructions: Please return to the Emergency Department if symptoms worsen or any other concerns. Referrals: Carlos Cardenas MD [Primary Care Provider] - 1-2 days Linda Reid MD [STAFF PHYSICIAN] - 1-2 days Time of Disposition: 15:37
[2016-09-12 15:49] VITALS: BP 148/77; PULSE 88; RESP 16; TEMP 98.8
== END 2016-09-12 15:51 | disposition home or self-care (01) ==
LOC: EC 14:38
DX: H11.31 Conjunctival hemorrhage, right eye (principal); H54.8 Legal blindness, as defined in USA; E11.9 Type 2 diabetes mellitus without complications; E03.9 Hypothyroidism, unspecified; Z87.891 Personal history of nicotine dependence; Z79.01 Long term (current) use of anticoagulants; Z79.899 Other long term (current) drug therapy; Z79.4 Long term (current) use of insulin; Z88.8 Allergy status to other drugs, medicaments and biological substances; Z86.718 Personal history of other venous thrombosis and embolism; Z86.711 Personal history of pulmonary embolism
CPT/HCPCS: 99283

== ENCOUNTER → 2017-02-11 | Outpatient (CLI) | payer OTHER, MEDICARE, BC ==
[2017-02-11 18:28] LABS: Blood Urea Nitrogen 23 mg/dL (9-20); Non-African American GFR(MDRD) >60 (>60 ml/min/1.73 sqM)
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
== END | disposition home or self-care (01) ==
LOC: RADCTMAIN 17:44
PROVIDERS: ATTEND Psychiatry & Neurology Neurology
DX: R51 Headache (principal); R42 Dizziness and giddiness; H53.9 Unspecified visual disturbance; Z88.8 Allergy status to other drugs, medicaments and biological substances
CPT/HCPCS: 82565; 84520; 70470; 36415; Q9967

== ENCOUNTER → 2017-04-01 | Outpatient (CLI) | payer MEDICARE, BC ==
--- NOTE | 2017-04-01 17:00 | CT ---
EXAMINATION TYPE: CT cervical spine wo con DATE OF EXAM: 04/01/2017 COMPARISON: MRI cervical spine October 29, 2009 HISTORY: Headaches with neck and left sided shoulder pain with decreased range of motion CT DLP: 707.9 mGycm. Automated Exposure Control for Dose Reduction was Utilized. TECHNIQUE: CT scan of the cervical spine is obtained without contrast, axial images are obtained, sa gittal and coronal reformatted images are also reviewed. FINDINGS: Cervical spine is visualized in its entirety from C1 through upper thoracic levels, demonst rates straightened alignment without evidence of acute fracture or dislocation. Prevertebral soft ti ssue appears within normal limits. The C1-C2 articulation is within normal limits on the coronal rayne ges. Vertebral body heights are maintained. There is mild disc space narrowing with moderate anterior spur ring C5-C6 level. There is moderate disc space narrowing and mild to moderate anterior spurring C6-C7 level. No large posterior disc herniations are seen on sagittal images. Review of axial images shows the C2-C3, C3-C4, and C4-C5 levels to appear within normal limits. Axial images at C5-C6 level show right-sided spur disc complex causing moderate right-sided neural fo raminal narrowing. Spinal canal is preserved. Left-sided neural foramen is patent. Axial images at C6-C7 level show similar right-sided foraminal spur disc complex causing moderate to severe right-sided neural foraminal narrowing. Left-sided neural foramen is patent. Spinal canal is p reserved. Axial images at C7-T1 level are felt within normal limits. Thyroid gland is felt within normal limits. Visualized lung apices are clear. IMPRESSION: Spur disc complexes contribute to moderate to severe right-sided neural foraminal narrowi ng C5-C6 and C6-C7 level. Similar findings noted on 2010 MRI. Findings do not correlate with patient history.
== END | disposition home or self-care (01) ==
LOC: RADCTMAIN 15:24
PROVIDERS: ATTEND Psychiatry & Neurology Pain Medicine
DX: M99.71 Connective tissue and disc stenosis of intervertebral foramina of cervical region (principal); Z88.5 Allergy status to narcotic agent
CPT/HCPCS: 72125

== ENCOUNTER → 2017-06-11 | Outpatient (CLI) | payer MEDICARE, BC ==
--- NOTE | 2017-06-11 16:41 | CT ---
EXAMINATION TYPE: CT shoulder LT wo con DATE OF EXAM: 06/11/2017 COMPARISON: NONE HISTORY: Left shoulder pain CT DLP: 614.9 mGycm Automated exposure control for dose reduction was used. FINDINGS: There is moderate acromioclavicular arthropathy with capsular hypertrophy and marginal osteophytes. J oint space narrowing is also seen. Mild glenohumeral arthropathy is noted with small marginal osteoph yte of the glenoid and subchondral cysts of the greater tuberosity. There is no evidence of acute fra cture or dislocation of the left shoulder. Evaluation of the rotator cuff is limited on CT. However muscular volume is maintained. Simple appear ing fat attenuating lesion likely representing an intramuscular no axillary adenopathy is noted. No s capular fracture or visualized rib fracture. Visualized left lung is clear. Lipoma measuring 4.3 cm i s seen on series 5 image 43 IMPRESSION: 1. NO OSSEOUS FRACTURE OR DISLOCATION OF THE LEFT SHOULDER. MILD LEFT GLENOHUMERAL ARTHROPATHY AND MO DERATE ACROMIOCLAVICULAR ARTHROPATHY ARE NOTED. 2. EVALUATION OF THE ROTATOR CUFF IS LIMITED ON CT ALTHOUGH MUSCLE VOLUME APPEARS MAINTAINED. MRI COU LD BE PERFORMED FOR FURTHER EVALUATION OF THE ROTATOR CUFF.
== END | disposition home or self-care (01) ==
LOC: RADCTMAIN 14:09
PROVIDERS: ATTEND Psychiatry & Neurology Neurology
DX: M19.012 Primary osteoarthritis, left shoulder (principal); Z88.8 Allergy status to other drugs, medicaments and biological substances

== ENCOUNTER → 2017-08-27 | Outpatient (CLI) | payer MEDICARE, BC ==
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
== END | disposition home or self-care (01) ==
LOC: RADCTMAIN 15:20
PROVIDERS: ATTEND Psychiatry & Neurology Neurology
DX: R93.7 Abnormal findings on diagnostic imaging of other parts of musculoskeletal system (principal); M25.559 Pain in unspecified hip; Z88.5 Allergy status to narcotic agent
CPT/HCPCS: 72192

== ENCOUNTER → 2018-08-05 | Outpatient (CLI) | payer MEDICARE, BC ==
[2018-08-05 10:22] LABS: HCT 51.7 % (39.0-53.0); HGB 16.6 gm/dL (13.0-17.5); MCH 29.2 pg (25.0-35.0); MCHC 32.1 g/dL (31.0-37.0); Mean Platelet Volume 7.1; Platelet Count 176 k/uL (150-450); RBC 5.68 m/uL (4.30-5.90); RDW 14.2 % (11.5-15.5); WBC 7.3 k/uL (3.8-10.6)
[2018-08-05 10:34] LABS: Magnesium 2.4 mg/dL (1.6-2.3); Potassium 4.2 mmol/L (3.5-5.1)
== END | disposition home or self-care (01) ==
LOC: LABPAT 09:47
PROVIDERS: ATTEND Internal Medicine Interventional Cardiology
DX: E11.8 Type 2 diabetes mellitus with unspecified complications (principal); Z01.812 Encounter for preprocedural laboratory examination; R94.39 Abnormal result of other cardiovascular function study
CPT/HCPCS: 36415; 80051; 82565; 82947; 83735; 84520; 85027

== ENCOUNTER 2018-08-19 06:29 | Day surgery (SDC) | payer MEDICARE, BC ==
[2018-08-17 08:59] VITALS: BMI 35.9
[~2018-08-19 06:29] MED LIST: ALPRAZolam 0.25 MG TAB PO PRN; ALPRAZolam 0.5 MG TAB PO PRN; NITROGLYCERIN SL TABS 0.4 MG TAB SUBLINGUAL PRN; SODIUM CHLORIDE 0.9% 1,000 ML in EMPTY BAG 1 BAG IV ONE
[2018-08-19 07:00] LABS: Glucose,Whole Blood 118 mg/dL (75-99)
[2018-08-19] MEDS ORDERED: ATORVASTATIN 80 MG TAB PO ONE (07:00)
[2018-08-19] MEDS ORDERED: ASPIRIN 325 MG TAB PO ONE (07:00)
[2018-08-19 07:03] VITALS: PULSE 104; TEMP 98.4
[2018-08-19] MEDS ORDERED: HEPARIN SODIUM 1,000 UN/ML (10ML VL) ONE (07:15)
[2018-08-19] MEDS ORDERED: LIDOCAINE 1% INJ 10MG/ML (20 ML MDV) ONE (07:15)
[2018-08-19] MEDS ORDERED: VERAPAMIL 2.5 MG/ML 2 ML AMP ONE (07:15)
[2018-08-19 07:38] LABS: INR 1.1 (<1.2); Prothrombin Time 11.3 sec (9.0-12.0)
[2018-08-19] MEDS ORDERED: MIDAZOLAM (PF) 2 MG/2 ML VIAL IV ONE (07:48)
[2018-08-19] MEDS ORDERED: LIDOCAINE 1% INJ 10MG/ML (20 ML MDV) SQ ONE (07:51)
[2018-08-19] MEDS ORDERED: VERAPAMIL SYRINGE (5 MG/10 ML) INTRAARTER ONE (07:53)
[2018-08-19] MEDS ORDERED: HEPARIN SODIUM 1,000 UN/ML (10ML VL) IV ONE (07:54)
[2018-08-19] MEDS ORDERED: fentaNYL (PF) 50 MCG/ML 2 ML AMP ONE (07:56)
[2018-08-19] MEDS ORDERED: fentaNYL (PF) 50 MCG/ML 2 ML AMP IV ONE (07:57)
--- NOTE | 2018-08-19 08:06 | HP ---
HISTORY AND PHYSICAL This is a 68-year-old gentleman with a known history of type 2 diabetes, hypertension, hyperlipidemia, who had an abnormal stress test. In view of his abnormal stress test, he was advised to have coronary angiography. The rationale, risks, benefits, options were carefully explained to the patient. He understands all details and wishes to proceed with the procedure. He was initially scheduled sometime in May, but because of an ophthalmological surgery for his diabetic retinopathy, this was postponed. He understands the rationale, risks, benefits, options and wishes to proceed with the procedure. Ejection fraction revealed preserved systolic function. The patient does have exertional chest tightness and shortness of breath with moderate effort. He has hypertension, diabetes, and hyperlipidemia. PAST MEDICAL HISTORY: Past medical history is remarkable for hyperlipidemia, type 2 diabetes and hypertension and a positive stress test. MEDICATIONS: Medications at home include Avapro 150 mg daily, levothyroxine 100 mcg daily, metoprolol tartrate 50 mg b.i.d. He takes NovoLog and also takes long-acting insulin as well. His other medications include warfarin 7.5 mg daily. He has a remote history of pulmonary embolism and also a Crow filter. PHYSICAL EXAMINATION: On examination, blood pressure is 140/80, pulse rate is about 70 per minute, regular. HEENT: Unremarkable. Fundus was not examined by me. NECK: Supple. No JVD. I do not hear any carotid bruit. Heart exam reveals S1, S2 without significant rub, murmur or gallop. Lungs are clear. Abdomen is soft, nontender. Lower extremities reveal normal pulses. No edema. Central nervous system is normal. IMPRESSION: 1. Abnormal stress test. 2. Type 2 diabetes. 3. Hypertension. 4. Hyperlipidemia. RECOMMENDATIONS: Coronary angiography and PCI if indicated. The patient understands risks, benefits, options and rationale and wishes to proceed with the procedure. MMODL / IJN: [id number] /
[2018-08-19] MEDS ORDERED: IOPAMIDOL-370 100ML BTL INJ ONE (08:10)
[2018-08-19] MEDS ORDERED: RX INFO: IV CONTRAST WAS GIVEN 1 EACH MISC MISCELLANE PRN (08:18)
[2018-08-19] MEDS ORDERED: SODIUM CHLORIDE 0.9% 1,000 ML IV SCH (08:30)
[2018-08-19 09:03] VITALS: RESP 16
--- NOTE | 2018-08-19 09:21 | CC ---
CARDIAC CATHETERIZATION REPORT DATE OF SERVICE: 08/19/2018 PROCEDURE: Left heart catheterization and coronary angiography. PERFORMED BY: Dr. Arely Larios. SEDATION: Moderate conscious sedation time was 17 minutes. Patient was administered Versed and fentanyl. His oxygen saturation, hemodynamics and EKG were monitored closely. CLINICAL INFORMATION: Mr. Simone Carter is a 68-year-old gentleman with history of hypertension, type 2 diabetes, hyperlipidemia, who had an abnormal stress test with inferior wall reversible defect. He was advised coronary angiography after due discussion regarding risks, benefits, and options and brought in for the procedure electively. PROCEDURE NOTE: Under local anesthesia and strict aseptic precautions, a 6-Ukrainian introducer was placed in the right radial artery. Using an Ultimate 1 catheter, I performed selective coronary angiography. I used a pigtail catheter to check LV pressure but LV gram was not performed. The sheath was taken out and a TR band applied as per protocol. Excellent hemostasis was obtained with the saturation in the fingers of the right hand of 95%. Patient tolerated the procedure well without complications. He does not have any significant obstructive CAD and I expect he will be discharged later on today. CARDIAC CATHETERIZATION FINDINGS: The left ventricle end-diastolic pressure was 10 mmHg without any gradient across the aortic valve. CORONARY ANGIOGRAPHY FINDINGS: RIGHT CORONARY ARTERY: Technically dominant vessel, has no significant disease. Distally it bifurcates into a larger PLV, smaller PDA. Has minor irregularities in the PDA and PLV is larger vessel, has no significant disease. Overall dominant RCA is relatively disease-free with minor disease in distal branches. LEFT MAIN CORONARY ARTERY: This is a very long disease-free vessel that is tortuous and then trifurcates into LAD, ramus intermedius and circumflex. Left main is free of significant disease. LEFT ANTERIOR DESCENDING CORONARY ARTERY: Good caliber vessel extends along the anterior wall, gives off septal and diagonal branches, runs all the way to the apex and the apical portion gives off another diagonal branch that is lateral portion of left ventricle. Minor irregularities. No significant disease in the entire LAD system. A fairly decent sized diagonal branch comes off very proximally from the LAD. RAMUS INTERMEDIUS: Good caliber distribution vessel that runs laterally and bifurcates into two small branches, has no significant disease in the ramus, relatively small distribution vessel that starts of large, but divides into two branches. LEFT POSTERIOR CIRCUMFLEX CORONARY ARTERY: Technically nondominant vessel runs in the AV groove, gives off distal post lateral branches. No significant disease. LEFT VENTRICULOGRAM: This was not performed. FINAL IMPRESSION: This patient has a right dominant system. No significant obstructive disease. Minor irregularities noted. Stress test was probably a false positive one. Filling pressures are normal without any gradient across the aortic valve. RECOMMENDATIONS: I am recommending that we will continue medical therapy with risk factor modification. No intervention necessary from a cardiac standpoint. Aggressive lipid-lowering strategies, diabetes control and hypertension and risk factor modifications advised. Patient will be discharged later on today and I will see him in the office in one week. MMODL / IJN: [id number] /
[2018-08-19 16:44] VITALS: BP 132/78
== END 2018-08-19 14:55 | disposition home or self-care (01) ==
LOC: CATHCVL 06:29
PROVIDERS: ATTEND Internal Medicine Interventional Cardiology
DX: R94.39 Abnormal result of other cardiovascular function study (principal); E11.319 Type 2 diabetes mellitus with unspecified diabetic retinopathy without macular edema; E78.5 Hyperlipidemia, unspecified; I10 Essential (primary) hypertension; Z79.01 Long term (current) use of anticoagulants; Z79.4 Long term (current) use of insulin; Z79.899 Other long term (current) drug therapy; Z86.711 Personal history of pulmonary embolism; Z82.49 Family history of ischemic heart disease and other diseases of the circulatory system; Z79.890 Hormone replacement therapy; E66.9 Obesity, unspecified; Z68.30 Body mass index [BMI] 30.0-30.9, adult
CPT/HCPCS: 93458; 85610; C1769; C1894; J2001; J3010; J1644; Q9967; J2250

== ENCOUNTER 2018-12-24 16:29 | Inpatient (IN) | payer MEDICARE, BC ==
[2018-12-24] MEDS ORDERED: SODIUM CHLORIDE 0.9% 1,000 ML IV ONE (17:41)
[2018-12-24 17:48] LABS: Basophils # (A) 0.1 k/uL (0-0.2); Basophils % (A) 1 %; Eosinophils # (A) 0.1 k/uL (0-0.7); Eosinophils % (A) 1 %; HCT 45.9 % (39.0-53.0); HGB 15.1 gm/dL (13.0-17.5); Lymphocytes % (A) 25 %; MCH 30.2 pg (25.0-35.0); MCHC 32.9 g/dL (31.0-37.0); MCV 91.8 fL (80.0-100.0); Monocytes # (A) 0.6 k/uL (0-1.0); Monocytes % (A) 7 %; Neutrophils # (A) 5.1 k/uL (1.3-7.7); Neutrophils % (A) 64 %; Platelet Count 173 k/uL (150-450); RDW 14.5 % (11.5-15.5); WBC 7.9 k/uL (3.8-10.6)
--- NOTE | 2018-12-24 17:51 | ED ---
General Adult HPI - General Chief complaint: GI Bleed Stated complaint: GI Bleed Time Seen by Provider: 12/24/18 17:27 Source: patient, EMS Mode of arrival: EMS Limitations: no limitations - History of Present Illness Initial comments: Patient presents to the ED by ambulance for evaluation with his daughter at bedside. Patient states that he developed rectal bleeding about 5 minutes prior to calling for an ambulance today. Patient states that he is on warfarin anticoagulation therapy, and he states that his last INR was 3.6. Patient also admits to feeling slightly nauseated. Patient denies having any pain, fever or chills, headache, chest pain, dyspnea, dizziness, abdominal pain, rectal pain, vomiting, diarrhea or constipation, melanotic stool, dysuria or hematuria, urinary symptoms, or any other symptoms or complaints. - Related Data Home Medications Medication Instructions Recorded Confirmed Levothyroxine Sodium [Synthroid] 100 mcg PO DAILY 06/30/16 08/17/18 Warfarin [Coumadin] 7.5 mg PO SUTUTHFRSA 06/30/16 08/19/18 Insulin Degludec [Tresiba 37 unit SQ 09/12/16 08/19/18 Flextouch U-100] Clotrimazole Cream [Lotrimin Cream] 1 applic TOPICAL BID 08/17/18 08/17/18 Empagliflozin [Jardiance] 25 mg PO DAILY 08/17/18 08/17/18 Insulin Aspart [NovoLOG Flexpen] 15 units SQ AC-BRKFST 08/17/18 08/17/18 Insulin Aspart [NovoLOG Flexpen] 18 - 20 units SQ 08/17/18 08/17/18 Insulin Aspart [Novolog Flexpen] 15 unit SQ AC-LUNCH 08/17/18 08/17/18 Irbesartan [Avapro] 75 mg PO 08/17/18 08/17/18 Metoprolol Tartrate [Lopressor] 50 mg PO DAILY 08/17/18 08/19/18 Rosuvastatin Calcium [Crestor] 20 mg PO MOWEFR 08/17/18 08/19/18 Warfarin [Coumadin] 3.75 tab PO MOWEFR 08/17/18 08/19/18 Previous Rx's Medication Instructions Recorded Aspirin [Adult Low Dose Aspirin EC] 81 mg PO DAILY #30 tablet. 07/02/16 Allergies Allergy/AdvReac Type Severity Reaction Status Date / Time butorphanol [From Stadol] Allergy Severe Unknown Verified 08/17/18 08:35 Review of Systems ROS Statement: Those systems with pertinent positive or pertinent negative responses have been documented in the HPI. ROS Other: All systems not noted in ROS Statement are negative. 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 History of Any Multi-Drug Resistant Organisms: None Reported Past Surgical History: Hernia Repair, Orthopedic Surgery, Tonsillectomy Additional Past Surgical History / Comment(s): green filled filter, umbilical he rnia repair, L knee arthroscopy, bilateral inguinal hernia repairs, colonoscopy. Past Anesthesia/Blood Transfusion Reactions: Previous Problems w/ Anesthesia Additional Past Anesthesia/Blood Transfusion Reaction / Comment(s): Pt was told by anesthesiologist to never receive Stadol again-had difficulty "getting me out of it." Past Psychological History: Depression Smoking Status: Former smoker Past Alcohol Use History: None Reported Past Drug Use History: None Reported - Past Family History Father Family Medical History: Myocardial Infarction ([place]) Additional Family Medical History / Comment(s): Father at the age of 59yrs from a [place] Mother Additional Family Medical History / Comment(s): Mother in her mid 60's from CHF General Exam Limitations: no limitations General appearance: alert, in no apparent distress Head exam: Present: atraumatic, normocephalic Eye exam: Present: normal appearance, EOMI ENT exam: Present: mucous membranes moist Respiratory exam: Present: normal lung sounds bilaterally. Absent: respiratory distress, wheezes, rales, rhonchi, stridor Cardiovascular Exam: Present: normal rhythm, tachycardia, normal heart sounds, other (Normal radial pulses bilaterally) GI/Abdominal exam: Present: soft. Absent: distended, tenderness, guarding Rectal exam: Present: normal rectal tone, bloody stool. Absent: mass, tenderness Extremities exam: Absent: tenderness, pedal edema, calf tenderness Neurological exam: Present: alert, oriented X3. Absent: motor sensory deficit Psychiatric exam: Present: normal affect, normal mood Skin exam: Present: warm, dry, intact, normal color Course Vital Signs 12/24/18 12/24/18 12/24/18 16:40 17:49 17:57 Temperature 98.5 F Pulse Rate 111 H 103 H 96 Respiratory 16 16 16 Rate Blood Pressure 133/91 84/48 132/77 O2 Sat by Pulse 95 96 99 Oximetry 12/24/18 12/24/18 18:49 19:03 Temperature 98.4 F Pulse Rate 103 H 107 H Respiratory 16 16 Rate Blood Pressure 119/65 121/61 O2 Sat by Pulse 96 95 Oximetry - Reevaluation(s) Reevaluation #1: 12/24/18 18:38 Case, H&P, lab results and ED management thus far were discussed with Dr. Ibrahim () who agrees to see the patient in consultation. He has no further recommendations at this time. 12/24/18 18:45 Case, H&P, test results, ED management thus far and my discussion with Dr. Ibrahim () as above were discussed with Dr. David who accepts hospital floor admission. He has no further recommendations at this time. 12/24/18 19:13 Patient denies development of any new symptoms while in the ED. Patient continues to be mildly tachycardic and normotensive. Patient is aware of his test results and my discussions as above. Patient agrees with hospital admission at this time. EKG Findings - EKG Comments: EKG Findings:: Normal sinus rhythm, ventricular rate of 95 bpm, normal IN and QRS intervals, normal QT interval, normal axis, no ST or T-wave abnormality, normal EKG Medical Decision Making - Medical Decision Making Patient had some more rectal bleeding while in the ED. Patient remains normotensive and mildly tachycardic. Patient's hemoglobin is within normal limits at 15.1. Patient's INR is 3.1. Patient's warfarin was reversed with 2 units of FFP and 10 mg of IV vitamin K. GI was consulted. Patient will be admitted to the hospital by Dr. David. - Lab Data Result diagrams: 12/24/18 16:40 12/24/18 16:40 Lab Results 12/24/18 12/24/18 12/24/18 Range/Units 16:35 16:40 16:40 WBC (3.8-10.6) k/uL RBC (4.30-5.90) m/uL Hgb (13.0-17.5) gm/dL Hct (39.0-53.0) % MCV (80.0-100.0) fL MCH (25.0-35.0) pg MCHC (31.0-37.0) g/dL RDW (11.5-15.5) % Plt Count (150-450) k/uL Neutrophils % % Lymphocytes % % Monocytes % % Eosinophils % % Basophils % % Neutrophils # (1.3-7.7) k/uL Lymphocytes # (1.0-4.8) k/uL Monocytes # (0-1.0) k/uL Eosinophils # (0-0.7) k/uL Basophils # (0-0.2) k/uL PT 29.4 H (9.0-12.0) sec INR 3.1 H (<1.2) APTT 31.2 H (22.0-30.0) sec Sodium (137-145) mmol/L Potassium (3.5-5.1) mmol/L Chloride (98-107) mmol/L Carbon Dioxide (22-30) mmol/L Anion Gap mmol/L BUN (9-20) mg/dL Creatinine (0.66-1.25) mg/dL Est GFR (CKD-EPI)AfAm (>60 ml/min/1.73 sqM) Est GFR (CKD-EPI)NonAf (>60 ml/min/1.73 sqM) Glucose (74-99) mg/dL Plasma Lactic Acid Arya (0.7-2.0) mmol/L Calcium (8.4-10.2) mg/dL Total Bilirubin (0.2-1.3) mg/dL AST (17-59) U/L ALT (21-72) U/L Alkaline Phosphatase (38-126) U/L Troponin I (0.000-0.034) ng/mL Total Protein (6.3-8.2) g/dL Albumin (3.5-5.0) g/dL Stool Occult Blood (Negative) Blood Type B Negative Blood Type Confirm B Negative Blood Type Recheck No Previous Record Bld Type Recheck Status CABO Indicated Antibody Screen NEGATIVE Transfuse Plasma Spec Expiration Date 12/27/2018 - 233912/24/18 12/24/18 12/24/18 Range/Units 16:40 16:40 16:40 WBC 7.9 (3.8-10.6) k/uL RBC 5.00 (4.30-5.90) m/uL Hgb 15.1 (13.0-17.5) gm/dL Hct 45.9 (39.0-53.0) % MCV 91.8 (80.0-100.0) fL MCH 30.2 (25.0-35.0) pg MCHC 32.9 (31.0-37.0) g/dL RDW 14.5 (11.5-15.5) % Plt Count 173 (150-450) k/uL Neutrophils % 64 % Lymphocytes % 25 % Monocytes % 7 % Eosinophils % 1 % Basophils % 1 % Neutrophils # 5.1 (1.3-7.7) k/uL Lymphocytes # 2.0 (1.0-4.8) k/uL Monocytes # 0.6 (0-1.0) k/uL Eosinophils # 0.1 (0-0.7) k/uL Basophils # 0.1 (0-0.2) k/uL PT (9.0-12.0) sec INR (<1.2) APTT (22.0-30.0) sec Sodium 138 (137-145) mmol/L Potassium 4.4 (3.5-5.1) mmol/L Chloride 106 (98-107) mmol/L Carbon Dioxide 22 (22-30) mmol/L Anion Gap 10 mmol/L BUN 34 H (9-20) mg/dL Creatinine 1.35 H (0.66-1.25) mg/dL Est GFR (CKD-EPI)AfAm 61 (>60 ml/min/1.73 sqM) Est GFR (CKD-EPI)NonAf 53 (>60 ml/min/1.73 sqM) Glucose 271 H (74-99) mg/dL Plasma Lactic Acid Arya (0.7-2.0) mmol/L Calcium 9.0 (8.4-10.2) mg/dL Total Bilirubin 0.5 (0.2-1.3) mg/dL AST 26 (17-59) U/L ALT 21 (21-72) U/L Alkaline Phosphatase 65 (38-126) U/L Troponin I <0.012 (0.000-0.034) ng/mL Total Protein 6.3 (6.3-8.2) g/dL Albumin 3.8 (3.5-5.0) g/dL Stool Occult Blood (Negative) Blood Type Blood Type Confirm Blood Type Recheck Bld Type Recheck Status Antibody Screen Transfuse Plasma Spec Expiration Date 12/24/18 12/24/18 12/24/18 Range/Units 16:40 17:36 18:11 WBC (3.8-10.6) k/uL RBC (4.30-5.90) m/uL Hgb (13.0-17.5) gm/dL Hct (39.0-53.0) % MCV (80.0-100.0) fL MCH (25.0-35.0) pg MCHC (31.0-37.0) g/dL RDW (11.5-15.5) % Plt Count (150-450) k/uL Neutrophils % % Lymphocytes % % Monocytes % % Eosinophils % % Basophils % % Neutrophils # (1.3-7.7) k/uL Lymphocytes # (1.0-4.8) k/uL Monocytes # (0-1.0) k/uL Eosinophils # (0-0.7) k/uL Basophils # (0-0.2) k/uL PT (9.0-12.0) sec INR (<1.2) APTT (22.0-30.0) sec Sodium (137-145) mmol/L Potassium (3.5-5.1) mmol/L Chloride (98-107) mmol/L Carbon Dioxide (22-30) mmol/L Anion Gap mmol/L BUN (9-20) mg/dL Creatinine (0.66-1.25) mg/dL Est GFR (CKD-EPI)AfAm (>60 ml/min/1.73 sqM) Est GFR (CKD-EPI)NonAf (>60 ml/min/1.73 sqM) Glucose (74-99) mg/dL Plasma Lactic Acid Arya 1.1 (0.7-2.0) mmol/L Calcium (8.4-10.2) mg/dL Total Bilirubin (0.2-1.3) mg/dL AST (17-59) U/L ALT (21-72) U/L Alkaline Phosphatase (38-126) U/L Troponin I (0.000-0.034) ng/mL Total Protein (6.3-8.2) g/dL Albumin (3.5-5.0) g/dL Stool Occult Blood Positive (Negative) Blood Type Blood Type Confirm Blood Type Recheck Bld Type Recheck Status Antibody Screen Transfuse Plasma 12/24/2018 Spec Expiration Date Disposition Clinical Impression: GI bleed, Warfarin-induced coagulopathy Disposition: ADMITTED IP TO THIS [facility] Condition: Stable Is patient prescribed a controlled substance at d/c from ED?: No Time of Disposition: 18:45 Decision Date: 12/24/18 Decision Time: 18:36
[2018-12-24 17:53] LABS: INR 3.1 (<1.2); Partial Thromboplastin Time 31.2 sec (22.0-30.0); Prothrombin Time 29.4 sec (9.0-12.0)
[2018-12-24] MEDS ORDERED: PHYTONADIONE 10 MG in SODIUM CHLORIDE 0.9% 50 ML IVPB STA (17:55)
[2018-12-24 17:57] LABS: Albumin 3.8 g/dL (3.5-5.0); Potassium 4.4 mmol/L (3.5-5.1); Total Bilirubin 0.5 mg/dL (0.2-1.3); Total Protein 6.3 g/dL (6.3-8.2)
[2018-12-24] MEDS ORDERED: NALOXONE 0.4 MG/ML 1 ML VIAL IV PRN (19:02)
[2018-12-24 23:58] LABS: Glucose,Whole Blood 236 mg/dL (75-99)
[2018-12-25] MEDS: SODIUM CHLORIDE 0.9% 1,000 ML IV SCH ×3 (00:02→18:45)
[2018-12-25] MEDS ORDERED: INSULIN ASPART (NovoLOG) 100 UNIT/ML VIAL SQ SCH (04:00)
[2018-12-25 06:01] LABS: Basophils % (A) 0 %; Eosinophils % (A) 0 %; HCT 33.9 % (39.0-53.0); HGB 10.6 gm/dL (13.0-17.5); Lymphocytes # (A) 1.3 k/uL (1.0-4.8); Lymphocytes % (A) 20 %; MCH 29.1 pg (25.0-35.0); MCHC 31.3 g/dL (31.0-37.0); Mean Platelet Volume 6.9; Monocytes # (A) 0.5 k/uL (0-1.0); Monocytes % (A) 7 %; Neutrophils # (A) 4.7 k/uL (1.3-7.7); Neutrophils % (A) 71 %; Platelet Count 162 k/uL (150-450); RBC 3.64 m/uL (4.30-5.90); RDW 14.6 % (11.5-15.5); WBC 6.7 k/uL (3.8-10.6)
[2018-12-25 06:04] LABS: INR 1.2 (<1.2); Prothrombin Time 12.1 sec (9.0-12.0)
[2018-12-25] MEDS: INSULIN ASPART (NovoLOG) 100 UNIT/ML VIAL SQ SCH ×3 (06:08→18:41)
[2018-12-25 06:17] LABS: Glucose,Whole Blood 170 mg/dL (75-99)
[2018-12-25 06:40] LABS: Albumin 3.1 g/dL (3.5-5.0); Potassium 4.3 mmol/L (3.5-5.1); Total Bilirubin 0.6 mg/dL (0.2-1.3); Total Protein 5.1 g/dL (6.3-8.2)
[2018-12-25 11:59] LABS: Glucose,Whole Blood 204 mg/dL (75-99)
[2018-12-25 12:04] LABS: HCT 32.6 % (39.0-53.0); HGB 10.2 gm/dL (13.0-17.5); MCH 29.9 pg (25.0-35.0); MCHC 31.4 g/dL (31.0-37.0); MCV 95.4 fL (80.0-100.0); Mean Platelet Volume 7.5; Platelet Count 171 k/uL (150-450); RBC 3.42 m/uL (4.30-5.90); RDW 14.7 % (11.5-15.5); WBC 11.4 k/uL (3.8-10.6)
[2018-12-25] MEDS: METOPROLOL TARTRATE 50 MG TAB PO SCH ×2 (12:04→21:15)
--- NOTE | 2018-12-25 14:12 | P.HPIM ---
History of Present Illness H&P Date: 12/25/18 Chief Complaint: Bright red blood per rectum History of presenting complaint: This is a very pleasant [address] Carlos Damon. Chronic stable medical conditions include diabetes mellitus type 2, sleep apnea, hypothyroid, diverticulosis,. Patient's had multiple DVTs and PE in the past. For which patient is on Coumadin. Patient also has a Crow filter. Patient yesterday and a large amount of blood per rectum. Subsequently had more bloody stools. Denies any abdominal pain. No fever no chills. Does feel tired and rundown. No dizziness no chest pain no palpitation. Patient in the ER had a INR of 3.1. Patient was given fresh frozen plasma and vitamin K. 10 mg. Patient had more episodes on the floor. And patient was subsequently transferred to the ICU. For close hemodynamic monitoring. H&H will be checked. GI already been called. Returner was consulted. Review of systems: GEN.: Tired EYES: None HEENT: None NECK: None RESPIRATORY: None CARDIOVASCULAR: None GASTROINTESTINAL: As above GENITOURINARY: None MUSCULOSKELETAL: None LYMPHATICS: None HEMATOLOGICAL: None PSYCHIATRY: None NEUROLOGICAL: None Social history: Patient smoked for about 13 years stopped in 1980. Lives alone.. Retired. Used to work for [employer] Physical examination: VITAL SIGNS: 98.5, 111, 16, 133/91,, 95% room air GENERAL: BMI 35.7, laying in bed, tired. EYES: Pupils equal. Conjunctiva palel. HEENT: External appearance of nose and ears normal, oral cavity grossly normal. NECK: JVD not raised; masses not palpable. HEART: First and second heart sounds are normal; no edema. LUNGS: Respiratory rate normal; clear to auscultation. ABDOMEN: Soft, nontender, liver spleen not palpable, no masses palpable. PSYCH: Alert and oriented x3; mood and affect normal. NEUROLOGICAL: Cranial nerves grossly intact; no facial asymmetry, power and sensation grossly intact. LYMPHATICS: No lymph nodes palpable in the axilla and neck INVESTIGATIONS, reviewed in the clinical context: White count 7.9 hemoglobin 15.1 repeat 10.6 INR 3. 1 repeat 1.2 BUN 34 creatinine 1.3 5 repeat 28.14 Assessment: -This is a patient who is on Coumadin for multiple DVT and PEs in the past now presents with fresh blood per rectum multiple episodes. Expect this to be more distal GI bleed. Both cannot rule out to large proximal bleed. -Acute blood loss anemia from GI bleed -Chronic DVT and PE, recurrent. Also has a Crow filter -Diabetes mellitus type 2 -Obstructive sleep apnea -Hypothyroid -Colonic diverticulosis -Coumadin monitoring Plan: Patient did receive vitamin K 10 mg the ER. 2 units of fresh frozen plasma. Hemoglobin is dropped. Admitted to the ICU. GI is consulted. Other home medications resumed. Coumadin of course has been held. Care was discussed with the patient. Questions were answered. 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 History of Any Multi-Drug Resistant Organisms: None Reported Past Surgical History: Hernia Repair, Orthopedic Surgery, Tonsillectomy Additional Past Surgical History / Comment(s): green filled filter, umbilical hernia repair, L knee arthroscopy, bilateral inguinal hernia repairs, colonoscopy. Past Anesthesia/Blood Transfusion Reactions: Previous Problems w/ Anesthesia Additional Past Anesthesia/Blood Transfusion Reaction / Comment(s): Pt was told by anesthesiologist to never receive Stadol again-had difficulty "getting me out of it." Past Psychological History: Depression Additional Psychological History / Comment(s): Pt states he is depressed from the recent loss of his spouse (03/28/16). He denies suicidal thoughts or plans. He now lives alone with 1 cat. He is independent. Smoking Status: Former smoker Past Alcohol Use History: None Reported Additional Past Alcohol Use History / Comment(s): Pt started smoking in 1966 and quit in 1980. Past Drug Use History: None Reported - Past Family History Father Family Medical History: Myocardial Infarction ([place]) Additional Family Medical History / Comment(s): Father at the age of 59yrs from a [place] Mother Additional Family Medical History / Comment(s): Mother in her mid 60's from CHF Medications and Allergies Home Medications Medication Instructions Recorded Confirmed Type Levothyroxine Sodium [Synthroid] 100 mcg PO DAILY 06/30/16 12/24/18 History Aspirin [Adult Low Dose Aspirin EC] 81 mg PO DAILY #30 tablet. 07/02/16 Rx Insulin Degludec [Tresiba 37 unit SQ HS 09/12/16 12/24/18 History Flextouch U-100] Empagliflozin [Jardiance] 25 mg PO DAILY 08/17/18 12/24/18 History Insulin Aspart [NovoLOG Flexpen] See Protocol SQ AC-TID 08/17/18 12/24/18 History Irbesartan [Avapro] 75 mg PO HS 08/17/18 12/24/18 History Metoprolol Tartrate [Lopressor] 50 mg PO BID 08/17/18 12/24/18 History Rosuvastatin Calcium [Crestor] 20 mg PO DAILY 08/17/18 12/24/18 History Warfarin [Coumadin] 7.5 mg PO DIRECTED 08/17/18 12/24/18 History Allergies Allergy/AdvReac Type Severity Reaction Status Date / Time butorphanol [From Stadol] Allergy Severe Unknown Verified 08/17/18 08:35 Physical Exam Vitals: Vital Signs Temp Pulse Pulse Pulse Resp BP BP 12/25/18 09:00 118 H 20 159/83 12/25/18 08:18 97.9 F 121 H 10 L 146/77 12/25/18 07:00 116 H 17 148/79 12/25/18 06:00 113 H 16 143/78 12/25/18 05:00 108 H 14 152/85 12/25/18 04:00 98.0 F 110 H 18 145/81 12/25/18 03:00 109 H 17 147/72 12/25/18 02:30 98.0 F 112 H 16 146/77 12/25/18 02:00 111 H 19 135/76 12/25/18 01:37 98.1 F 112 H 16 139/74 12/25/18 01:00 112 H 14 146/76 12/25/18 00:32 98.1 F 112 H 14 134/79 12/25/18 00:02 98.2 F 110 H 14 146/79 12/25/18 00:00 111 H 12 140/82 12/24/18 23:52 98.2 F 112 H 14 140/82 12/24/18 22:01 97.7 F 113 H 16 113/74 12/24/18 21:38 97.9 F 105 H 18 107/67 12/24/18 21:00 16 12/24/18 19:43 98 F 108 H 18 110/57 12/24/18 19:13 98.0 F 113 H 16 136/72 12/24/18 19:03 98.4 F 107 H 16 121/61 12/24/18 18:49 103 H 16 119/65 12/24/18 17:57 96 16 132/77 12/24/18 17:49 103 H 16 84/48 12/24/18 16:40 98.5 F 111 H 16 133/91 Pulse Ox 12/25/18 09:00 96 12/25/18 08:18 97 12/25/18 07:00 96 12/25/18 06:00 96 12/25/18 05:00 96 12/25/18 04:00 97 12/25/18 03:00 96 12/25/18 02:30 12/25/18 02:00 95 12/25/18 01:37 12/25/18 01:00 97 12/25/18 00:32 12/25/18 00:02 12/25/18 00:00 97 12/24/18 23:52 12/24/18 22:01 12/24/18 21:38 94 L 12/24/18 21:00 12/24/18 19:43 12/24/18 19:13 99 12/24/18 19:03 95 12/24/18 18:49 96 12/24/18 17:57 99 12/24/18 17:49 96 12/24/18 16:40 95 Intake and Output 12/24/18 12/25/18 12/25/18 22:59 06:59 14:59 Intake Total 283 1178 300 Output Total 1 1150 325 Balance 282 28 -25 Intake: Intake, IV Titration 560 300 Amount Phytonadione 10 mg In 50 Sodium Chloride 0.9% 50 ml @ 100 mls/hr IVPB ONCE STA Rx#:[id number] Sodium Chloride 0.9% 1, 510 300 000 ml @ 100 mls/hr IV . Q10H [facility] Rx#:[id number] Blood Product 283 618 Ffp 24 Cpd Unit 283 [id number] Ffp 24 Cpd Unit 308 [id number] Output: Urine 800 325 Stool 350 Urine/Stool Mix 1 Other: Voiding Method Toilet Bedside Commode Bedside Commode # Voids 1 1 Weight 111.13 kg 113 kg Results CBC & Chem 7: 12/25/18 12:00 12/25/18 05:30 Labs: Abnormal Lab Results - Last 24 Hours (Table) 12/24/18 12/24/18 12/24/18 Range/Units 16:40 16:40 23:33 RBC (4.30-5.90) m/uL Hgb (13.0-17.5) gm/dL Hct (39.0-53.0) % PT 29.4 H (9.0-12.0) sec INR 3.1 H (<1.2) APTT 31.2 H (22.0-30.0) sec Chloride (98-107) mmol/L Carbon Dioxide (22-30) mmol/L BUN 34 H (9-20) mg/dL Creatinine 1.35 H (0.66-1.25) mg/dL Glucose 271 H (74-99) mg/dL POC Glucose (mg/dL) 236 H (75-99) mg/dL Calcium (8.4-10.2) mg/dL ALT (21-72) U/L Total Protein (6.3-8.2) g/dL Albumin (3.5-5.0) g/dL 12/25/18 12/25/18 12/25/18 Range/Units 05:30 05:30 05:30 RBC 3.64 L (4.30-5.90) m/uL Hgb 10.6 L D (13.0-17.5) gm/dL Hct 33.9 L (39.0-53.0) % PT 12.1 H (9.0-12.0) sec INR 1.2 H (<1.2) APTT (22.0-30.0) sec Chloride 110 H (98-107) mmol/L Carbon Dioxide 20 L (22-30) mmol/L BUN 28 H (9-20) mg/dL Creatinine (0.66-1.25) mg/dL Glucose 162 H (74-99) mg/dL POC Glucose (mg/dL) (75-99) mg/dL Calcium 8.0 L (8.4-10.2) mg/dL ALT 20 L (21-72) U/L Total Protein 5.1 L (6.3-8.2) g/dL Albumin 3.1 L (3.5-5.0) g/dL 12/25/18 Range/Units 06:03 RBC (4.30-5.90) m/uL Hgb (13.0-17.5) gm/dL Hct (39.0-53.0) % PT (9.0-12.0) sec INR (<1.2) APTT (22.0-30.0) sec Chloride (98-107) mmol/L Carbon Dioxide (22-30) mmol/L BUN (9-20) mg/dL Creatinine (0.66-1.25) mg/dL Glucose (74-99) mg/dL POC Glucose (mg/dL) 170 H (75-99) mg/dL Calcium (8.4-10.2) mg/dL ALT (21-72) U/L Total Protein (6.3-8.2) g/dL Albumin (3.5-5.0) g/dL Thrombosis Risk Factor Assmnt - Choose All That Apply Each Risk Factor Represents 2 Points: Age 61-74 years Each Risk Factor Represents 3 Points: History of DVT/PE Thrombosis Risk Factor Assessment Total Risk Factor Score: 5 Thrombosis Risk Factor Assessment Level: High Risk
--- NOTE | 2018-12-25 14:18 | P.CNPUL ---
History of Present Illness Consult date: 12/25/18 Requesting physician: Arnaldo David Reason for consult: other (GI bleeding, patient was transferred to the ICU. And requested ICU management.) Chief complaint: Rectal bleeding History of present illness: This is a 68-year-old white male with history of multiple medical problems including hypercoagulable state, [place] HFR gene mutation, strong family history of hypercoagulable state, previous history of deep vein thrombosis, previous history of pulmonary embolism, previous history of IVC filter placement, patient is maintained on Coumadin for many years. Patient presented to the ER last nigh t with an acute episode/sudden episode of rectal bleeding about 5 minutes before he called for an ambulance. Patient presented to the ER, hemoglobin was in the range of 15, INR was 3.6, patient had minimal nausea, no abdominal pain, no discomfort, he had no chest pain, no fever, no chills, he was hemodynamically stable, hence he was admitted to the medical floor. Apparently last night, the patient had few episodes of bright red blood per rectum, the nurse taking care of the patient was concerned, called me about dressing the patient to the ICU. Patient was noted to be tachycardic, but not hypotensive, and his hemoglobin showed a drop since admission. Hence arrangements were made to transfer the patient to the ICU, and recommended GI consultation. Patient is yet to be seen by gastroenterology on consultation. Patient denies any previous episodes of rectal bleeding, however patient has been on Coumadin, and recently was given antibiotics for cellulitis in the periumbilical area by his primary care physician. That may have been a factor contributing to his Coumadin coagulopathy and elevated INR. Patient denies any history of diverticulosis, denies any history of GI malignancy, denies any history of peptic ulcer disease and denies any history of alcoholism or alcohol related liver disease. Back in July the patient had a cardiac catheterization which was normal his medical p roblems include hyperlipidemia type 2 diabetes hypertension and previous stress test but a normal cardiac catheterization. History of pulmonary embolism and Crow filter placement. Patient also describes a strong family history of hypercoagulable state, many family members had thromboembolic disease including deep vein thromboses and pulmonary emboli. Review of Systems Constitutional: Denies any fever chills or weight loss. HEENT: Denies any headache blurred vision or dizziness denies any sore throat, denies any earache, denies any syncope. Denies any vertigo. Pulmonary: Denies any cough wheezing or shortness of breath. At any chest pain. Did have previous history of thrombolic embolic disease/pulmonary embolism. And history of DVT. Cardiac: Denies any chest pain, denies any palpitations, denies any syncope, cardiac catheterization back in July was reported as normal. GI: As noted in HPI. Genitourinary: Denies any dysuria frequency urgency, hematuria, denies any difficulty urinating. Musculoskeletal: Denies any deformities, denies any limitation in range of motion. Hematologic: History of hypercoagulable state, [place] filter placement, and history of DVT history of pulmonary embolism. Neurologic, history of TIA, seen by neurology for TIA, recommended at the time to remain on Coumadin. Psychiatric: Denies any symptoms of active depression. Skin: Had recent episode of cellulitis in the periumbilical area, treated with a one-week course of antibiotics. And resolved. Endocrine: Has history of diabetes and hypothyroidism, both are under control. 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 History of Any Multi-Drug Resistant Organisms: None Reported Past Surgical History: Hernia Repair, Orthopedic Surgery, Tonsillectomy Additional Past Surgical History / Comment(s): green filled filter, umbilical hernia repair, L knee arthroscopy, bilateral inguinal hernia repairs, colonoscopy. Past Anesthesia/Blood Transfusion Reactions: Previous Problems w/ Anesthesia Additional Past Anesthesia/Blood Transfusion Reaction / Comment(s): Pt was told by anesthesiologist to never receive Stadol again-had difficulty "getting me out of it." Past Psychological History: Depression Additional Psychological History / Comment(s): Pt states he is depressed from the recent loss of his spouse (03/28/16). He denies suicidal thoughts or plans. He now lives alone with 1 cat. He is independent. Smoking Status: Former smoker Past Alcohol Use History: None Reported Additional Past Alcohol Use History / Comment(s): Pt started smoking in 1966 and quit in 1980. Past Drug Use History: None Reported - Past Family History Father Family Medical History: Myocardial Infarction ([place]) Additional Family Medical History / Comment(s): Father at the age of 59yrs from a [place] Mother Additional Family Medical History / Comment(s): Mother in her mid 60's from CHF Medications and Allergies Home Medications Medication Instructions Recorded Confirmed Type Levothyroxine Sodium [Synthroid] 100 mcg PO DAILY 06/30/16 12/24/18 History Aspirin [Adult Low Dose Aspirin EC] 81 mg PO DAILY #30 tablet. 07/02/16 12/24/18 Rx Insulin Degludec [Tresiba 37 unit SQ HS 09/12/16 12/24/18 History Flextouch U-100] Empagliflozin [Jardiance] 25 mg PO DAILY 08/17/18 12/24/18 History Insulin Aspart [NovoLOG Flexpen] See Protocol SQ AC-TID 08/17/18 12/24/18 History Irbesartan [Avapro] 75 mg PO HS 08/17/18 12/24/18 History Metoprolol Tartrate [Lopressor] 50 mg PO BID 08/17/18 12/24/18 History Rosuvastatin Calcium [Crestor] 20 mg PO DAILY 08/17/18 12/24/18 History Warfarin [Coumadin] 7.5 mg PO DIRECTED 08/17/18 12/24/18 History Allergies Allergy/AdvReac Type Severity Reaction Status Date / Time butorphanol [From Stadol] Allergy Severe Unknown Verified 08/17/18 08:35 Physical Exam Vitals: Vital Signs Temp Pulse Pulse Pulse Resp BP BP 12/25/18 12:00 97.9 F 118 H 13 170/80 12/25/18 11:00 118 H 21 117/66 12/25/18 10:00 120 H 17 161/83 12/25/18 09:00 118 H 20 159/83 12/25/18 08:18 97.9 F 121 H 10 L 146/77 12/25/18 07:00 116 H 17 148/79 12/25/18 06:00 113 H 16 143/78 12/25/18 05:00 108 H 14 152/85 12/25/18 04:00 98.0 F 110 H 18 145/81 12/25/18 03:00 109 H 17 147/72 12/25/18 02:30 98.0 F 112 H 16 146/77 12/25/18 02:00 111 H 19 135/76 12/25/18 01:37 98.1 F 112 H 16 139/74 12/25/18 01:00 112 H 14 146/76 12/25/18 00:32 98.1 F 112 H 14 134/79 12/25/18 00:02 98.2 F 110 H 14 146/79 12/25/18 00:00 111 H 12 140/82 12/24/18 23:52 98.2 F 112 H 14 140/82 12/24/18 22:01 97.7 F 113 H 16 113/74 12/24/18 21:38 97.9 F 105 H 18 107/67 12/24/18 21:00 16 12/24/18 19:43 98 F 108 H 18 110/57 12/24/18 19:13 98.0 F 113 H 16 136/72 12/24/18 19:03 98.4 F 107 H 16 121/61 12/24/18 18:49 103 H 16 119/65 12/24/18 17:57 96 16 132/77 12/24/18 17:49 103 H 16 84/48 12/24/18 16:40 98.5 F 111 H 16 133/91 Pulse Ox 12/25/18 12:00 98 12/25/18 11:00 96 12/25/18 10:00 96 12/25/18 09:00 96 12/25/18 08:18 97 12/25/18 07:00 96 12/25/18 06:00 96 12/25/18 05:00 96 12/25/18 04:00 97 12/25/18 03:00 96 12/25/18 02:30 12/25/18 02:00 95 12/25/18 01:37 12/25/18 01:00 97 12/25/18 00:32 12/25/18 00:02 12/25/18 00:00 97 12/24/18 23:52 12/24/18 22:01 12/24/18 21:38 94 L 12/24/18 21:00 12/24/18 19:43 12/24/18 19:13 99 12/24/18 19:03 95 12/24/18 18:49 96 12/24/18 17:57 99 12/24/18 17:49 96 12/24/18 16:40 95 Intake and Output 12/24/18 12/25/18 12/25/18 22:59 06:59 14:59 Intake Total 283 1178 800 Output Total 1 1150 425 Balance 282 28 375 Intake: Intake, IV Titration 560 400 Amount Phytonadione 10 mg In 50 Sodium Chloride 0.9% 50 ml @ 100 mls/hr IVPB ONCE STA Rx#:[id number] Sodium Chloride 0.9% 1, 510 400 000 ml @ 100 mls/hr IV . Q10H [facility] Rx#:[id number] Oral 400 Blood Product 283 618 Ffp 24 Cpd Unit 283 [id number] Ffp 24 Cpd Unit 308 [id number] Output: Urine 800 425 Stool 350 Urine/Stool Mix 1 Other: Voiding Method Toilet Bedside Commode Bedside Commode # Voids 1 1 # Bowel Movements 1 Weight 111.13 kg 113 kg Physical Exam: Revealed a 68-year-old white male in no distress, very pleasant. Head: Atraumatic, normocephalic. HEENT:[Neck is supple.] [No neck masses.] [No thyromegaly.] [No JVD.] Chest: [Clear throughout, no crackles, no rhonchi, no wheezes.] Cardiac Exam: [Normal S1 and S2, no S3 gallop, no murmur.] Abdomen: [Soft, nontender, no megaly, no rebound, no guarding, normal bowel sounds.] Extremities: [No clubbing, no edema, no cyanosis.] There is evidence of chronic venous stasis changes noted in lower extremities bilaterally. Neurological Exam: [No focal neurologic deficit.] Alert and oriented 3. Skin: Resolving cellulitis in the periumbilical area treated recently with antibiotics. Psychiatric: Normal mood, affect and normal mental status examination. Musculoskeletal no limitation in range of motion, no deformities. Good muscle tone and strength. Results - Laboratory Findings CBC and BMP: 12/25/18 12:00 12/25/18 05:30 PT/INR, D-dimer PT 12.1 sec (9.0-12.0) H 12/25/18 05:30 INR 1.2 (<1.2) H 12/25/18 05:30 Abnormal lab findings: Abnormal Labs 12/24/18 12/24/18 12/24/18 16:40 16:40 23:33 WBC RBC Hgb Hct PT 29.4 H INR 3.1 H APTT 31.2 H Chloride Carbon Dioxide BUN 34 H Creatinine 1.35 H Glucose 271 H POC Glucose (mg/dL) 236 H Calcium ALT Total Protein Albumin 12/25/18 12/25/18 12/25/18 05:30 05:30 05:30 WBC RBC 3.64 L Hgb 10.6 L D Hct 33.9 L PT 12.1 H INR 1.2 H APTT Chloride 110 H Carbon Dioxide 20 L BUN 28 H Creatinine Glucose 162 H POC Glucose (mg/dL) Calcium 8.0 L ALT 20 L Total Protein 5.1 L Albumin 3.1 L 12/25/18 12/25/18 12/25/18 06:03 11:57 12:00 WBC 11.4 H RBC 3.42 L Hgb 10.2 L Hct 32.6 L PT INR APTT Chloride Carbon Dioxide BUN Creatinine Glucose POC Glucose (mg/dL) 170 H 204 H Calcium ALT Total Protein Albumin Assessment and Plan Assessment: Impression: 1 acute GI bleeding, most likely lower GI bleeding and most likely secondary to diverticulosis. Exacerbated by his Coumadin coagulopathy. Patient presented with elevated INR of 3.1. Presently the Coumadin is on hold, and his INR is 1.2. 2 Coumadin related coagulopathy, likely exacerbated by recent course of antibiotics taken for cellulitis. 3 multiple comorbidities including hypercoagulable state, and previous history of DVT and pulmonary embolism.. 4 type 2 diabetes 5 history of obstructive sleep apnea syndrome maintained on BiPAP. 6 history of hypothyroidism 7 history of TIA 8 history of diverticular disease documented on previous colonoscopy. 9 History of IVC filter placement for DVT and pulmonary embolism. Recommendation: Continue present supportive care measures, continue to hold Coumadin, will likely restart the Coumadin once cleared by gastroenterology. May require colonoscopy again, however that is to be decided upon by gastroenterology. In the meantime continue present meds including his home meds, place patient empirically on Protonix, continue to monitor serial hemoglobin and hematocrit every 6 hours, and possibly in a.m. Will continue to monitor the patient in the ICU, and we will follow. Time with Patient: Greater than 30
[2018-12-25] MEDS ORDERED: PEG 3350-NA SULF,BICARB,CL/KCL 4,000 ML BOTTLE PO ONE (16:00)
[2018-12-25] MEDS ORDERED: BISACODYL 5 MG TABLET.DR PO ONE (17:00)
[2018-12-25 18:41] LABS: Glucose,Whole Blood 197 mg/dL (75-99)
--- NOTE | 2018-12-25 21:11 | P.CONS ---
History of Present Illness - Reason for Consult Consult date: 12/25/18 Rectal bleeding Requesting physician: Arnaldo David - Chief Complaint Blood per rectum - History of Present Illness 68-year-old male with a medical history significant for MATTEO, hypothyroidism, diverticulosis, and diabetes mellitus as well as prior DVT/PE on anticoagulation therapy who presented to the hospital with complaints of blood per rectum. The patient reports multiple episodes of bright red blood per rectum. Initially he had 1 episode and called the EMS to be taken to the hospital for further evaluation. He reports 5 subsequent bloody bowel movements. No abdominal pain reported. He denies any NSAID use and reports Tylenol taken as needed for pain. He believes his last colonoscopy was in the last 10 years and significant for diverticulosis. Denies any unintentional weight loss. Hemoglobin on presentation was 15 and subsequently found to be 10.6 and then 10.2. INR was supratherapeutic on presentation at 3.1 and subsequently fell to 1.2 after re versal with vitamin K. Stool was positive for blood. Review of Systems REVIEW OF SYSTEMS: CONSTITUTIONAL: Denies any fevers, chills, weight change or fatigue. CARDIOVASCULAR: Denies any chest pain, palpitations high or low blood pressures RESPIRATORY: Denies any shortness of breath, hemoptysis or cough. GENITOURINARY: No dysuria or hematuria. MUSCULOSKELETAL: No weakness reported. SKIN: Denies any new rashes or lesions, jaundice or pallor. PSYCHIATRIC: Denies any depression or anxiety. NEUROLOGY: Denies headache, denies any new focal deficits. EARS/NOSE/THROAT: No recent hearing change, congestion, nasal discharge or sore throat. EYES: No pain in eyes, discharge or change in vision. GASTROINTESTINAL: As per HPI. 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 History of Any Multi-Drug Resistant Organisms: None Reported Past Surgical History: Hernia Repair, Orthopedic Surgery, Tonsillectomy Additional Past Surgical History / Comment(s): green filled filter, umbilical hernia repair, L knee arthroscopy, bilateral inguinal hernia repairs, colonoscopy. Past Anesthesia/Blood Transfusion Reactions: Previous Problems w/ Anesthesia Additional Past Anesthesia/Blood Transfusion Reaction / Comm: Pt was told by anesthesiologist to never receive Stadol again-had difficulty "getting me out of it." Past Psychological History: Depression Additional Psychological History / Comment(s): Pt states he is depressed from the recent loss of his spouse (03/28/16). He denies suicidal thoughts or plans. He now lives alone with 1 cat. He is independent. Smoking Status: Former smoker Past Alcohol Use History: None Reported Additional Past Alcohol Use History / Comment(s): Pt started smoking in 1966 and quit in 1980. Past Drug Use History: None Reported - Past Family History Father Family Medical History: Myocardial Infarction ([place]) Additional Family Medical History / Comment(s): Father at the age of 59yrs from a [place] Mother Additional Family Medical History / Comment(s): Mother in her mid 60's from CHF Medications and Allergies Home Medications Medication Instructions Recorded Confirmed Type Levothyroxine Sodium [Synthroid] 100 mcg PO DAILY 06/30/16 12/24/18 History Aspirin [Adult Low Dose Aspirin EC] 81 mg PO DAILY #30 tablet. 07/02/16 12/24/18 Rx Insulin Degludec [Tresiba 37 unit SQ HS 09/12/16 12/24/18 History Flextouch U-100] Empagliflozin [Jardiance] 25 mg PO DAILY 08/17/18 12/24/18 History Insulin Aspart [NovoLOG Flexpen] See Protocol SQ AC-TID 08/17/18 12/24/18 History Irbesartan [Avapro] 75 mg PO HS 08/17/18 12/24/18 History Metoprolol Tartrate [Lopressor] 50 mg PO BID 08/17/18 12/24/18 History Rosuvastatin Calcium [Crestor] 20 mg PO DAILY 08/17/18 12/24/18 History Warfarin [Coumadin] 7.5 mg PO DIRECTED 08/17/18 12/24/18 History Allergies Allergy/AdvReac Type Severity Reaction Status Date / Time butorphanol [From Stadol] Allergy Severe Unknown Verified 08/17/18 08:35 Physical Exam Vitals: Vital Signs Temp Pulse Pulse Pulse Resp BP BP 12/25/18 11:00 118 H 21 117/66 12/25/18 10:00 120 H 17 161/83 12/25/18 09:00 118 H 20 159/83 12/25/18 08:18 97.9 F 121 H 10 L 146/77 12/25/18 07:00 116 H 17 148/79 12/25/18 06:00 113 H 16 143/78 12/25/18 05:00 108 H 14 152/85 12/25/18 04:00 98.0 F 110 H 18 145/81 12/25/18 03:00 109 H 17 147/72 12/25/18 02:30 98.0 F 112 H 16 146/77 12/25/18 02:00 111 H 19 135/76 12/25/18 01:37 98.1 F 112 H 16 139/74 12/25/18 01:00 112 H 14 146/76 12/25/18 00:32 98.1 F 112 H 14 134/79 12/25/18 00:02 98.2 F 110 H 14 146/79 12/25/18 00:00 111 H 12 140/82 12/24/18 23:52 98.2 F 112 H 14 140/82 12/24/18 22:01 97.7 F 113 H 16 113/74 12/24/18 21:38 97.9 F 105 H 18 107/67 12/24/18 21:00 16 12/24/18 19:43 98 F 108 H 18 110/57 12/24/18 19:13 98.0 F 113 H 16 136/72 12/24/18 19:03 98.4 F 107 H 16 121/61 12/24/18 18:49 103 H 16 119/65 12/24/18 17:57 96 16 132/77 12/24/18 17:49 103 H 16 84/48 12/24/18 16:40 98.5 F 111 H 16 133/91 Pulse Ox 12/25/18 11:00 96 12/25/18 10:00 96 12/25/18 09:00 96 12/25/18 08:18 97 12/25/18 07:00 96 12/25/18 06:00 96 12/25/18 05:00 96 12/25/18 04:00 97 12/25/18 03:00 96 12/25/18 02:30 12/25/18 02:00 95 12/25/18 01:37 12/25/18 01:00 97 12/25/18 00:32 12/25/18 00:02 12/25/18 00:00 97 12/24/18 23:52 12/24/18 22:01 12/24/18 21:38 94 L 12/24/18 21:00 12/24/18 19:43 12/24/18 19:13 99 12/24/18 19:03 95 12/24/18 18:49 96 12/24/18 17:57 99 12/24/18 17:49 96 12/24/18 16:40 95 Intake and Output 12/24/18 12/25/18 12/25/18 22:59 06:59 14:59 Intake Total 283 1178 800 Output Total 1 1150 425 Balance 282 28 375 Intake: Intake, IV Titration 560 400 Amount Phytonadione 10 mg In 50 Sodium Chloride 0.9% 50 ml @ 100 mls/hr IVPB ONCE STA Rx#:[id number] Sodium Chloride 0.9% 1, 510 400 000 ml @ 100 mls/hr IV . Q10H [facility] Rx#:[id number] Oral 400 Blood Product 283 618 Ffp 24 Cpd Unit 283 [id number] Ffp 24 Cpd Unit 308 [id number] Output: Urine 800 425 Stool 350 Urine/Stool Mix 1 Other: Voiding Method Toilet Bedside Commode Bedside Commode # Voids 1 1 # Bowel Movements 1 Weight 111.13 kg 113 kg On physical examination, patient appears comfortable in no apparent distress. HEAD: Normocephalic, atraumatic. EYES: No scleral icterus. No conjunctival injection. MOUTH: No lesions, tongue midline. NECK: Trachea midline, no gross abnormalities. CHEST: Clear to auscultation with no wheezing or rhonchi appreciated. HEART: Regular rate and rhythm. ABDOMEN: Soft, obese. Bowel sounds are positive. No organomegaly. No guarding or rigidity. EXTREMITIES: No pedal edema. SKIN: No rashes, no jaundice. NEUROLOGIC: Alert and oriented x3. No focal deficits. Results CBC & Chem 7: 12/25/18 12:00 12/25/18 05:30 Labs: Abnormal Lab Results - Last 24 Hours (Table) 12/24/18 12/24/18 12/24/18 Range/Units 16:40 16:40 23:33 WBC (3.8-10.6) k/uL RBC (4.30-5.90) m/uL Hgb (13.0-17.5) gm/dL Hct (39.0-53.0) % PT 29.4 H (9.0-12.0) sec INR 3.1 H (<1.2) APTT 31.2 H (22.0-30.0) sec Chloride (98-107) mmol/L Carbon Dioxide (22-30) mmol/L BUN 34 H (9-20) mg/dL Creatinine 1.35 H (0.66-1.25) mg/dL Glucose 271 H (74-99) mg/dL POC Glucose (mg/dL) 236 H (75-99) mg/dL Calcium (8.4-10.2) mg/dL ALT (21-72) U/L Total Protein (6.3-8.2) g/dL Albumin (3.5-5.0) g/dL 12/25/18 12/25/18 12/25/18 Range/Units 05:30 05:30 05:30 WBC (3.8-10.6) k/uL RBC 3.64 L (4.30-5.90) m/uL Hgb 10.6 L D (13.0-17.5) gm/dL Hct 33.9 L (39.0-53.0) % PT 12.1 H (9.0-12.0) sec INR 1.2 H (<1.2) APTT (22.0-30.0) sec Chloride 110 H (98-107) mmol/L Carbon Dioxide 20 L (22-30) mmol/L BUN 28 H (9-20) mg/dL Creatinine (0.66-1.25) mg/dL Glucose 162 H (74-99) mg/dL POC Glucose (mg/dL) (75-99) mg/dL Calcium 8.0 L (8.4-10.2) mg/dL ALT 20 L (21-72) U/L Total Protein 5.1 L (6.3-8.2) g/dL Albumin 3.1 L (3.5-5.0) g/dL 12/25/18 12/25/18 12/25/18 Range/Units 06:03 11:57 12:00 WBC 11.4 H (3.8-10.6) k/uL RBC 3.42 L (4.30-5.90) m/uL Hgb 10.2 L (13.0-17.5) gm/dL Hct 32.6 L (39.0-53.0) % PT (9.0-12.0) sec INR (<1.2) APTT (22.0-30.0) sec Chloride (98-107) mmol/L Carbon Dioxide (22-30) mmol/L BUN (9-20) mg/dL Creatinine (0.66-1.25) mg/dL Glucose (74-99) mg/dL POC Glucose (mg/dL) 170 H 204 H (75-99) mg/dL Calcium (8.4-10.2) mg/dL ALT (21-72) U/L Total Protein (6.3-8.2) g/dL Albumin (3.5-5.0) g/dL Assessment and Plan (1) Anemia associated with acute blood loss Narrative/Plan: 68-year-old male with multiple medical comorbidities on anticoagulation therapy with Coumadin who presents to the hospital with multiple episodes of painless bright red blood per rectum. No prior episodes of blood per rectum. Last colonoscopy within the past 10 years significant for diverticulosis per the patient. He reports painless bleeding which is continued after hospitalization. He has received vitamin K for reversal of his anticoagulation. No nausea or vomiting reported. Denies any NSAID use. No history of peptic ulcer disease. Unclear etiology with suspicion for perirectal bleeding or diverticular bleeding in the setting of acute blood loss anemia. Current Visit: Yes Status: Acute Code(s): D62 - ACUTE POSTHEMORRHAGIC ANEMIA SNOMED Code(s): 680431977 (2) GI bleed Current Visit: Yes Status: Acute Code(s): K92.2 - GASTROINTESTINAL HEMORRHAGE, UNSPECIFIED SNOMED Code(s): 37460168 (3) Warfarin-induced coagulopathy Current Visit: Yes Status: Acute Code(s): D68.32 - HEMORRHAGIC DISORD D/T EXTRINSIC CIRCULATING ANTICOAGULANTS; T45.515A - ADVERSE EFFECT OF ANTICOAG ULANTS, INITIAL ENCOUNTER SNOMED Code(s): 85573740 Plan: Supportive care Clear liquid diet Nothing by mouth after midnight Bowel prep ordered Plan for colonoscopy in the morning Continue to hold anticoagulation therapy Thank you for allowing us to participate in the care of the patient we will continue to follow
[2018-12-25] MEDS: PANTOPRAZOLE 40 MG/10 ML VIAL IVP SCH (21:15)
[2018-12-26] MEDS: INSULIN ASPART (NovoLOG) 100 UNIT/ML VIAL SQ SCH ×5 (01:02→21:52)
[2018-12-26 01:06] LABS: Glucose,Whole Blood 159 mg/dL (75-99)
[2018-12-26] MEDS: SODIUM CHLORIDE 0.9% 1,000 ML IV SCH ×3 (01:26→22:26)
[2018-12-26 05:50] LABS: Basophils % (A) 0 %; Eosinophils # (A) 0.1 k/uL (0-0.7); Eosinophils % (A) 2 %; HCT 24.1 % (39.0-53.0); Lymphocytes # (A) 1.4 k/uL (1.0-4.8); Lymphocytes % (A) 23 %; MCH 30.5 pg (25.0-35.0); MCHC 33.1 g/dL (31.0-37.0); MCV 92.2 fL (80.0-100.0); Mean Platelet Volume 6.7; Monocytes # (A) 0.5 k/uL (0-1.0); Monocytes % (A) 8 %; Neutrophils % (A) 65 %; Platelet Count 154 k/uL (150-450); RBC 2.62 m/uL (4.30-5.90); RDW 14.5 % (11.5-15.5); WBC 6.2 k/uL (3.8-10.6)
[2018-12-26 05:51] LABS: African American GFR (CKD) >90 (>60 ml/min/1.73 sqM); Anion Gap 7 mmol/L; Blood Urea Nitrogen 21 mg/dL (9-20); Calcium 6.9 mg/dL (8.4-10.2); Carbon Dioxide 21 mmol/L (22-30); Chloride 109 mmol/L (98-107); Glucose 115 mg/dL (74-99); Potassium 3.5 mmol/L (3.5-5.1); Sodium 137 mmol/L (137-145)
[2018-12-26] MEDS: LEVOTHYROXINE 100 MCG TAB PO SCH (06:38)
[2018-12-26 06:45] LABS: Glucose,Whole Blood 132 mg/dL (75-99)
[2018-12-26] MEDS ORDERED: PROPOFOL 10 MG/ML 20 ML VIAL IV ONE (08:09)
[2018-12-26] MEDS ORDERED: IV FLUID CONTINUATION 500 ML IV ONE (08:13)
--- NOTE | 2018-12-26 08:58 | P.PCN ---
Date of Procedure: 12/26/18 Description of Procedure: BRIEF HISTORY: 68-year-old male with a medical history significant for MATTEO, hypothyroidism, diverticulosis, and diabetes mellitus as well as prior DVT/PE on anticoagulation therapy who presented to the hospital with complaints of blood per rectum. The patient reports multiple episodes of bright red blood per rectum. Initially he had 1 episode and called the EMS to be taken to the hospital for further evaluation. He reports 5 subsequent bloody bowel movements. No abdominal pain reported. He denies any NSAID use and reports Tylenol taken as needed for pain. He believes his last colonoscopy was in the last 10 years and significant for diverticulosis. Denies any unintentional weight loss. Hemoglobin on presentation was 15 and subsequently found to be 10.6 and then 10.2. INR was supratherapeutic on presentation at 3.1 and subsequently fell to 1.2 after reversal with vitamin K. Stool was positive for blood. PROCEDURE PERFORMED: Colonoscopy. PREOPERATIVE DIAGNOSIS: Hematochezia, anemia acute blood loss. ESTIMATED BLOOD LOSS: Minimal. IV sedation per Anesthesia. PROCEDURE: After informed consent was obtained, the patient, was brought into the endoscopy unit. IV sedation was administered by Anesthesia under continuous monitoring. Digital rectal examination was normal. Initially the Olympus CF-190 flexible video colonoscope was then inserted in the rectum, gradually advanced into the cecum without any difficulty. Careful examination was performed as the scope was gradually being withdrawn. Ileocecal valve and the appendiceal orifice were visualized and appeared normal. Prep was good, however there was large amount of old hemolyzed blood throughout the colon. Mucosa of the cecum, ascending colon, transverse colon, descending colon, sigmoid colon, and rectum appeared normal. Numerous small and large diverticula were noted throughout the colon, particularly concentrated in the left colon. There was also a large amount of hemolyzed blood with no active bleeding noted. A few scattered subcentimeter polyps were noted and not removed secondary to the patient's admission for GI bleed. Retroflexion was performed in the rectum and no lesions were seen. The patient tolerated the procedure well. IMPRESSION: No active bleeding, however old hemolyzed blood noted throughout the colon. Pandiverticulosis, worse in the left colon. Low-grade internal hemorrhoids. A few scattered subcentimeter diverticula. RECOMMENDATIONS: Findings of this examination were discussed with the patient and his daughter. Okay for full liquid diet. Continue to monitor hemoglobin and hematocrit and transfuse as needed. Continue to hold Coumadin. If patient's hemoglobin is stable and he remains asymptomatic okay to resume Coumadin tomorrow and advance diet to low fiber/low residual.
[2018-12-26] MEDS: ATORVASTATIN 20 MG TAB PO SCH (10:29)
[2018-12-26] MEDS: LOSARTAN 25 MG TAB PO SCH (10:29)
[2018-12-26] MEDS: METOPROLOL TARTRATE 50 MG TAB PO SCH ×2 (10:29→21:52)
[2018-12-26] MEDS: PANTOPRAZOLE 40 MG/10 ML VIAL IVP SCH ×2 (10:29→21:53)
[2018-12-26] MEDS ORDERED: Potassium Replacement Protocol 1 EACH MISC MISCELLANE PRN (10:36)
[2018-12-26] MEDS: POTASSIUM CHLORIDE ER 20 MEQ TAB.ER PO SCH ×2 (10:42→13:16)
[2018-12-26] MEDS ORDERED: CALCIUM GLUCONATE 1 GM in SODIUM CHLORIDE 0.9% 100 ML IVPB ONE (11:00)
[2018-12-26 12:04] LABS: Glucose,Whole Blood 231 mg/dL (75-99)
--- NOTE | 2018-12-26 12:47 | P.PN ---
Subjective Progress Note Date: 12/26/18 Principal diagnosis: acute GI bleeding This is a 68-year-old white male with history of multiple medical problems including hypercoagulable state, MT HFR gene mutation, strong family history of hypercoagulable state, previous history of deep vein thrombosis, previous history of pulmonary embolism, previous history of IVC filter placement, patient is maintained on Coumadin for many years. Patient presented to the ER last night with an acute episode/sudden episode of rectal bleeding about 5 minutes before he called for an ambulance. Patient presented to the ER, hemoglobin was in the range of 15, INR was 3.6, patient had minimal nausea, no abdominal pain, no discomfort, he had no chest pain, no fever, no chills, he was hemodynamically stable, hence he was admitted to the medical floor. Apparently last night, the patient had few episodes of bright red blood per rectum, the nurse taking care of the patient was concerned, called me about dressing the patient to the ICU. Patient was noted to be tachycardic, but not hypotensive, and his hemoglobin showed a drop since admission. Hence arrangements were made to transfer the patient to the ICU, and recommended GI consultation. Patient is yet to be seen by gastroenterology on consultation. Patient denies any previous episodes of rectal bleeding, however patient has been on Coumadin, and recently was given antibiotics for cellulitis in the periumbilical area by his primary care physician. That may have been a factor contributing to his Coumadin coagulopathy and elevated INR. Patient denies any history of diverticulosis, denies any history of GI malignancy, denies any history of peptic ulcer disease and denies any history of alcoholism or alcohol related liver disease. Back in July the patient had a cardiac catheterization which was normal his medical problems include hyperlipidemia type 2 diabetes hypertension and previous stress test but a normal cardiac catheterization. History of pulmonary embolism and Crow filter placement. Patient also describes a strong family history of hypercoagulable state, many family members had thromboembolic disease including deep vein thromboses and pulmonary emboli. Reevaluated today on 12/26/2018, no further episodes of bleeding. Patient underwent colonoscopy today, and he was found to have diverticulosis, but no active bleeding.advised by gastroenterology to continue to hold Coumadin. In the meantime we'll try to recommend sequential compression stockings to avoid potential deep vein thromboses in this patient. Clinically the patient is doing better, breathing easier, denies any melena or hematemesis, his hemoglobin today is8.0,his hemoglobin on admission was 15.1.clearly the patient had significant amount of GI bleeding from diverticulosis unless otherwise. And most likely related to his Coumadin coagulopathy. Objective - Vital Signs Vital signs: Vital Signs Temp 97.6 F 12/26/18 08:00 Pulse 100 12/26/18 10:00 Resp 23 12/26/18 10:00 BP 140/65 12/26/18 10:00 Pulse Ox 96 12/26/18 10:00 Intake & Output 12/25/18 12/26/18 12/26/18 18:59 06:59 18:59 Intake Total 2500 5300 400 Output Total 1725 1075 200 Balance 775 4225 200 Weight 112.2 kg Intake: IV 400 IV Fluid Continuation 500 300 ml @ 0 mls/hr IV .STK- MED ONE Rx#:[id number] Intake, IV Titration 1100 1200 Amount Sodium Chloride 0.9% 1, 1100 1200 000 ml @ 100 mls/hr IV . Q10H [facility] Rx#:[id number] Oral 1400 4100 Output: Urine 1725 1075 200 Other: Voiding Method Urinal Urinal Urinal # Bowel Movements 1 2 - Exam Physical Exam:68-year-old pleasant in no distress. On room air Head: Atraumatic, normocephalic. HEENT:[Neck is supple.] [No neck masses.] [No thyromegaly.] [No JVD.] Chest: [Clear throughout, no crackles, no rhonchi, no wheezes.] Cardiac Exam: [Normal S1 and S2, no S3 gallop, no murmur.] Abdomen: [Soft, nontender, no megaly, no rebound, no guarding, normal bowel sounds.] Extremities: [No clubbing, no edema, no cyanosis.] There is evidence of chronic venous stasis changes noted in lower extremities bilaterally. Neurological Exam: [No focal neurologic deficit.] Alert and oriented 3. Skin: Resolving cellulitis in the periumbilical area treated recently with antibiotics. Psychiatric: Normal mood, affect and normal mental status examination. Musculoskeletal no limitation in range of motion, no deformities. Good muscle tone and strength. - Labs CBC & Chem 7: 12/26/18 04:30 12/26/18 04:30 Labs: Abnormal Lab Results - Last 24 Hours (Table) 12/25/18 12/26/18 12/26/18 Range/Units 18:39 00:42 04:30 RBC 2.62 L (4.30-5.90) m/uL Hgb 8.0 L D (13.0-17.5) gm/dL Hct 24.1 L (39.0-53.0) % Chloride (98-107) mmol/L Carbon Dioxide (22-30) mmol/L BUN (9-20) mg/dL Glucose (74-99) mg/dL POC Glucose (mg/dL) 197 H 159 H (75-99) mg/dL Calcium (8.4-10.2) mg/dL 12/26/18 12/26/18 12/26/18 Range/Units 04:30 06:41 11:50 RBC (4.30-5.90) m/uL Hgb (13.0-17.5) gm/dL Hct (39.0-53.0) % Chloride 109 H (98-107) mmol/L Carbon Dioxide 21 L (22-30) mmol/L BUN 21 H (9-20) mg/dL Glucose 115 H (74-99) mg/dL POC Glucose (mg/dL) 132 H 231 H (75-99) mg/dL Calcium 6.9 L (8.4-10.2) mg/dL Assessment and Plan Assessment: Impression: 1 acute GI bleeding, most likely lower GI bleeding and most likely secondary to diverticulosis. Exacerbated by his Coumadin coagulopathy. Patient presented with elevated INR of 3.1. Coumadin remains on hold. 2 Coumadin related coagulopathy, likely exacerbated by recent course of antibiotics taken for cellulitis. 3 multiple comorbidities including hypercoagulable state, and previous history of DVT and pulmonary embolism.. 4 type 2 diabetes 5 history of obstructive sleep apnea syndrome maintained on BiPAP. 6 history of hypothyroidism 7 history of TIA 8 history of diverticular disease documented on previous colonoscopy.documented again on this colonoscopy done today. 9 History of IVC filter placement for DVT and pulmonary embolism. Recommendation: continue to hold Coumadin Continue sequential compression stockings for DVT prophylaxis. Transfer patient out of the ICU to a regular medical floor and continue to monitor daily CBC. Continue Protonix. Will place the patient on Coumadin once he is cleared by gastroenterology to restarted. Patient is clearly a high risk for deep vein thrombosis and thromboembolic disease. We'll continue to follow. Time with Patient: Less than 30
[2018-12-26 16:59] LABS: Glucose,Whole Blood 316 mg/dL (75-99)
--- NOTE | 2018-12-26 17:08 | P.PN ---
Progress Note - Text Progress Note Date: 12/26/18 Chief Complaint: Bright red blood per rectum Interval history: This is a very pleasant [address] Carlos Damon. Chronic stable medical conditions include diabetes mellitus type 2, sleep apnea, hypothyroid, diverticulosis,. Patient's had multiple DVTs and PE in the past. For which patient is on Coumadin. Patient also has a Crow filter. Patient yesterday and a large amount of blood per rectum. Subsequently had more bloody stools. Denies any abdominal pain. No fever no chills. Does feel tired and rundown. No dizziness no chest pain no palpitation. Patient in the ER had a INR of 3.1. Patient was given fresh frozen plasma and vitamin K. 10 mg. Patient had more episodes on the floor. And patient was subsequently transferred to the ICU. For close hemodynamic monitoring. H&H will be checked. GI already been called. Tobacco Sampler was consulted. Today-in the ICU. patient underwent colonoscopy was found to have old hemolyzed blood throughout the colon. Found to have watkins diverticulosis. [place] to be the source of bleed. Patient had no more bleeding since yesterday. Review of systems: Was done for constitutional, cardiovascular, GI, pulmonary. relevant finding as above Active Medications Atorvastatin Calcium (Lipitor) 20 mg PO DAILY [facility] Last Admin: 12/26/18 10:29 Dose: 20 mg Documented by: Sodium Chloride (Saline 0.9%) 1,000 mls @ 100 mls/hr IV .Q10H [facility] Last Admin: 12/26/18 13:17 Dose: 100 mls/hr Documented by: Insulin Aspart (Novolog) 0 unit SQ ACHS [facility]; Protocol Levothyroxine Sodium (Synthroid) 100 mcg PO DAILY@0630 [facility] Last Admin: 12/26/18 06:38 Dose: Not Given Documented by: Losartan Potassium (Cozaar) 75 mg PO DAILY [facility] Last Admin: 12/26/18 10:29 Dose: 75 mg Documented by: Metoprolol Tartrate (Lopressor) 50 mg PO BID [facility] Last Admin: 12/26/18 10:29 Dose: 50 mg Documented by: Miscellaneous Information (Potassium Per Protocol) 1 each MISCELLANE DAILY PRN; Protocol PRN Reason: Per Protocol Naloxone HCl (Narcan) 0.2 mg IV Q2M PRN PRN Reason: Opioid Reversal Pantoprazole Sodium (Protonix) 40 mg IVP BID [facility] Last Admin: 12/26/18 10:29 Dose: 40 mg Documented by: Physical examination: VITAL SIGNS: 97.9, 76, 22, 11 8/58, 97% room air GENERAL: Propped up in chair, comfortable. EYES: Pupils equal. Conjunctiva palel. HEENT: External appearance of nose and ears normal, oral cavity grossly normal. NECK: JVD not raised; masses not palpable. HEART: First and second heart sounds are normal; no edema. LUNGS: Respiratory rate normal; clear to auscultation. ABDOMEN: Soft, nontender, liver spleen not palpable, no masses palpable. PSYCH: Alert and oriented x3; mood and affect normal. INVESTIGATIONS, reviewed in the clinical context: White count 6.2 hemoglobin 8 bun 21 creatinine 0.9 to Previous testing: White count 7.9 hemoglobin 15.1 repeat 10.6 INR 3. 1 repeat 1.2 BUN 34 creatinine 1.3 5 repeat 28/1.14 Assessment: -This is a patient who is on Coumadin for multiple DVT and PEs in the past now presents with fresh blood per rectum multiple episodes. Expect this to be more distal GI bleed. [place] to be diverticular bleed. -Acute blood loss anemia from GI bleed -Chronic DVT and PE, recurrent. Also has a Crow filter -Diabetes mellitus type 2 -Obstructive sleep apnea -Hypothyroid -Colonic diverticulosis -Coumadin monitoring Plan: Discussed the causes could be findings. Dr. Rodriguez. Also discussed Coumadin with the patient. He did receive 10 mg of vitamin K in the ER. Will not respond to Coumadin for at least next 7-10 days. Did talk to him about the newer anticoagulates. He was already constraining asking his PCP about the same. We'll start the same tomorrow if no evidence of further bleeding. Patient stable to go to the ICU.
[2018-12-26 21:22] LABS: Glucose,Whole Blood 334 mg/dL (75-99)
[2018-12-27 05:08] VITALS: BP 114/63; PULSE 87; RESP 20; TEMP 98.4
[2018-12-27] MEDS: LEVOTHYROXINE 100 MCG TAB PO SCH (05:53)
[2018-12-27 07:03] LABS: Glucose,Whole Blood 256 mg/dL (75-99)
[2018-12-27 08:00] LABS: HCT 27.1 % (39.0-53.0); MCH 31.4 pg (25.0-35.0); MCHC 33.1 g/dL (31.0-37.0); MCV 94.8 fL (80.0-100.0); Mean Platelet Volume 7.4; Platelet Count 170 k/uL (150-450); RBC 2.86 m/uL (4.30-5.90); RDW 14.7 % (11.5-15.5); WBC 6.1 k/uL (3.8-10.6)
[2018-12-27 08:13] LABS: Calcium 8.5 mg/dL (8.4-10.2); Potassium 4.3 mmol/L (3.5-5.1)
[2018-12-27] MEDS: METOPROLOL TARTRATE 50 MG TAB PO SCH (08:37)
[2018-12-27] MEDS: INSULIN ASPART (NovoLOG) 100 UNIT/ML VIAL SQ SCH (08:37)
[2018-12-27] MEDS: LOSARTAN 25 MG TAB PO SCH (08:37)
[2018-12-27] MEDS: ATORVASTATIN 20 MG TAB PO SCH (08:38)
[2018-12-27] MEDS: PANTOPRAZOLE 40 MG/10 ML VIAL IVP SCH (08:38)
[2018-12-27] MEDS: SODIUM CHLORIDE 0.9% 1,000 ML IV SCH (08:38)
--- NOTE | 2018-12-27 11:45 | P.PN ---
Subjective Progress Note Date: 12/27/18 Principal diagnosis: Acute GI bleeding This is a 68-year-old white male with history of multiple medical problems including hypercoagulable state, MT HFR gene mutation, strong family history of hypercoagulable state, previous history of deep vein thrombosis, previous history of pulmonary embolism, previous history of IVC filter placement, patient is maintained on Coumadin for many years. Patient presented to the ER last night with an acute episode/sudden episode of rectal bleeding about 5 minutes before he called for an ambulance. Patient presented to the ER, hemoglobin was in the range of 15, INR was 3.6, patient had minimal nausea, no abdominal pain, no discomfort, he had no chest pain, no fever, no chills, he was hemodynamically stable, hence he was admitted to the medical floor. Apparently last night, the patient had few episodes of bright red blood per rectum, the nurse taking care of the patient was concerned, called me about dressing the patient to the ICU. Patient was noted to be tachycardic, but not hypotensive, and his hemoglobin showed a drop since admission. Hence arrangements were made to transfer the patient to the ICU, and recommended GI consultation. Patient is yet to be seen by gastroenterology on consultation. Patient denies any previous episodes of rectal bleeding, however patient has been on Coumadin, and recently was given antibiotics for cellulitis in the periumbilical area by his primary care physician. That may have been a factor contributing to his Coumadin coagulopathy and elevated INR. Patient denies any history of diverticulosis, denies any history of GI malignancy, denies any history of peptic ulcer disease and denies any history of alcoholism or alcohol related liver disease. Back in July the patient had a cardiac catheterization which was normal his medical problems include hyperlipidemia type 2 diabetes hypertension and previous stress test but a normal cardiac catheterization. History of pulmonary embolism and Crow filter placement. Patient also describes a strong family history of hypercoagulable state, many family members had thromboembolic disease including deep vein thromboses and pulmonary emboli. Reevaluated today on 12/26/2018, no further episodes of bleeding. Patient underwent colonoscopy today, and he was found to have diverticulosis, but no active bleeding.advised by gastroenterology to continue to hold Coumadin. In the meantime we'll try to recommend sequential compression stockings to avoid potential deep vein thromboses in this patient. Clinically the patient is doing better, breathing easier, denies any melena or hematemesis, his hemoglobin today is8.0,his hemoglobin on admission was 15.1.clearly the patient had significant amount of GI bleeding from diverticulosis unless otherwise. And most likely related to his Coumadin coagulopathy. On 12/27/2018 patient seen in follow-up on medical surgical floor. No episodes of GI bleeding in the last 24 hours, today's hemoglobin is 9.0, and patient has received 2 units of blood during this admission for acute GI bleeding, he underwent colonoscopy which found no active bleeding, pandiverticulosis worse in the left colon, low-grade internal hemorrhoids and a few scattered subcentimeter diverticula, hemodynamically stable, no acute distress, no compressive chest pain or shortness of breath. Coumadin remains on hold, and attending physician is currently in the process of checking patient's coverage for Xarelto Objective - Vital Signs Vital signs: Vital Signs Temp 98.4 F 12/27/18 05:06 Pulse 87 12/27/18 05:06 Resp 20 12/27/18 05:06 BP 114/63 12/27/18 05:06 Pulse Ox 95 12/27/18 05:06 Intake & Output 12/26/18 12/27/18 12/27/18 18:59 06:59 18:59 Intake Total 700 Output Total 875 500 Balance -175 -500 Intake: IV 400 IV Fluid Continuation 500 300 ml @ 0 mls/hr IV .STK- [facility] ONE Rx#:[id number] Oral 300 Output: Urine 875 500 Other: Voiding Method Urinal Toilet # Voids 4 1 # Bowel Movements 1 - Exam GENERAL EXAM: Alert, pleasant, 68-year-old white male, comfortable in no apparent distress. HEAD: Normocephalic/atraumatic. EYES: Normal reaction of pupils, equal size. Conjunctiva pink, sclera white. NOSE: Clear with pink turbinates. THROAT: No erythema or exudates. NECK: No masses, no JVD, no thyroid enlargement, no adenopathy. CHEST: No chest wall deformity. Symmetrical expansion. LUNGS: Equal air entry with no crackles, wheeze, rhonchi or dullness. CVS: Regular rate and rhythm, normal S1 and S2, no gallops, no murmurs, no rubs ABDOMEN: Soft, nontender. No hepatosplenomegaly, normal bowel sounds, no guarding or rigidity. EXTREMITIES: No clubbing, no edema, no cyanosis, 2+ pulses and upper and lower extremities. MUSCULOSKELETAL: Muscle strength and tone normal. SPINE: No scoliosis or deformity SKIN: No rashes CENTRAL NERVOUS SYSTEM: Alert and oriented -3. No focal deficits, tone is normal in all 4 extremities. PSYCHIATRIC: Alert and oriented -3. Appropriate affect. Intact judgment and insight. - Labs CBC & Chem 7: 12/27/18 07:25 12/27/18 07:25 Labs: Abnormal Lab Results - Last 24 Hours (Table) 12/26/18 12/26/18 12/26/18 Range/Units 11:50 16:56 21:20 RBC (4.30-5.90) m/uL Hgb (13.0-17.5) gm/dL Hct (39.0-53.0) % Chloride (98-107) mmol/L Glucose (74-99) mg/dL POC Glucose (mg/dL) 231 H 316 H 334 H (75-99) mg/dL 12/27/18 12/27/18 12/27/18 Range/Units 06:52 07:25 07:25 RBC 2.86 L (4.30-5.90) m/uL Hgb 9.0 L (13.0-17.5) gm/dL Hct 27.1 L (39.0-53.0) % Chloride 108 H (98-107) mmol/L Glucose 220 H (74-99) mg/dL POC Glucose (mg/dL) 256 H (75-99) mg/dL Assessment and Plan Plan: Assessment: 1 acute GI bleeding, most likely lower GI bleeding and most likely secondary to diverticulosis. Exacerbated by his Coumadin coagulopathy. Patient presented wi th elevated INR of 3.1. Coumadin remains on hold. 2 Coumadin related coagulopathy, likely exacerbated by recent course of antibiotics taken for cellulitis. 3 multiple comorbidities including hypercoagulable state, and previous history of DVT and pulmonary embolism.. 4 type 2 diabetes 5 history of obstructive sleep apnea syndrome maintained on BiPAP. 6 history of hypothyroidism 7 history of TIA 8 history of diverticular disease documented on previous colonoscopy.documented again on this colonoscopy done today. 9 History of IVC filter placement for DVT and pulmonary embolism. Plan: Hemodynamically patient is stable, no episodes of GI bleeding in the last 24 hours, vital signs are stable, continue current treatment, Coumadin remains on hold, case management check coverage for Xarelto, once GI service clears to restart anticoagulation, anticipate discharge home today. I performed a history & physical examination of the patient and discussed their management with my nurse practitioner, Alma Loving. I reviewed the nurse practitioner's note and agree with the documented findings and plan of care. Lung sounds are positive for clear breath sounds. The findings and the impre ssion was discussed with the patient. I attest to the documentation by the nurse practitioner. Time with Patient: Less than 30
[2018-12-27 12:37] LABS: Glucose,Whole Blood 284 mg/dL (75-99)
--- NOTE | 2018-12-27 23:05 | P.DS ---
Providers Date of admission: 12/25/18 08:16 Expected date of discharge: 12/27/18 Attending physician: Arnaldo David Consults: 12/24/18 18:39 Consult Physician Stat Consulting Provider: Dominic Ibrahim Consult Reason/Comments: GI bleed Do you want consulting provider notified?: Already Contacted 12/26/18 07:37 Consult Physician Urgent Consulting Provider: Javier Cordoba Consult Reason/Comments: ICU managament Do you want consulting provider notified?: Already Contacted Primary care [facility]: [facility] Course: Chief Complaint: Bright red blood per rectum Interval history: This is a very pleasant [address] Carlos Peng Chronic stable medical conditions include diabetes mellitus type 2, sleep apnea, hypothyroid, divertic ulosis,. Patient's had multiple DVTs and PE in the past. For which patient is on Coumadin. Patient also has a [place] filter. Patient yesterday and a large amount of blood per rectum. Subsequently had more bloody stools. Denies any abdominal pain. No fever no chills. Does feel tired and rundown. No dizziness no chest pain no palpitation. Patient in the ER had a INR of 3.1. Patient was given fresh frozen plasma and vitamin K. 10 mg. Patient had more episodes on the floor. And patient was subsequently transferred to the ICU. For close hemodynamic monitoring. H&H will be checked. GI already been called. [employer] was consulted. patient underwent colonoscopy was found to have old hemolyzed blood throughout the colon. Found to have watkins diverticulosis. Kake to be the source of bleed. Patient had no more bleeding .. Today. Care was discussed with the patient. Questions were answered. Patient has prescription coverage for Xarelto. Pros and cons were discussed. Questions were answered. He'll have his first dose tonight. Discussion and discharge planning more than 35 minutes Consultation: Dr. Ndiaye from music librarian Dr. Rodriguez from GI Physical examination: VITAL SIGNS: 98.4, 87, 20, 11 4/63, 95% room air GENERAL: Sitting up, comfortable EYES: Pupils equal. Conjunctiva pale. HEENT: External appearance of nose and ears normal, oral cavity grossly normal. NECK: JVD not raised; masses not palpable. HEART: First and second heart sounds are normal; no edema. LUNGS: Respiratory rate normal; clear to auscultation. ABDOMEN: Soft, nontender, liver spleen not palpable, no masses palpable. PSYCH: Alert and oriented x3; mood and affect normal. INVESTIGATIONS, reviewed in the clinical context: Hemoglobin 9 Previous testing: White count 7.9 hemoglobin 15.1 repeat 10.6 INR 3. 1 repeat 1.2 BUN 34 creatinine 1.3 5 repeat 19/04.14 Discharge diagnosis: -This is a patient who is on Coumadin for multiple DVT and PEs in the past now presents with fresh blood per rectum multiple episodes. Kake to be diverticulosis bleed from the colon. -Acute blood loss anemia from GI bleed -Chronic DVT and PE, recurrent. Also has a Crow filter -Diabetes mellitus type 2 -Obstructive sleep apnea -Hypothyroid -Colonic diverticulosis -Coumadin monitoring Disposition: Home Patient Condition at Discharge: Stable Plan - Discharge Summary Discharge Rx Participant: Yes New Discharge Prescriptions: New Rivaroxaban [Xarelto] 20 mg PO AC-SUPPER #30 tab Continue Levothyroxine Sodium [Synthroid] 100 mcg PO DAILY Aspirin [Adult Low Dose Aspirin EC] 81 mg PO DAILY #30 tablet. Insulin Degludec [Tresiba Flextouch U-100] 37 unit SQ HS Rosuvastatin Calcium [Crestor] 20 mg PO DAILY Metoprolol Tartrate [Lopressor] 50 mg PO BID Irbesartan [Avapro] 75 mg PO HS Empagliflozin [Jardiance] 25 mg PO DAILY Insulin Aspart [NovoLOG Flexpen] See Protocol SQ AC-TID Discontinued Warfarin [Coumadin] 7.5 mg PO DIRECTED Discharge Medication List Levothyroxine Sodium [Synthroid] 100 mcg PO DAILY 06/30/16 [History] Aspirin [Adult Low Dose Aspirin EC] 81 mg PO DAILY #30 tablet. 07/02/16 [Rx] Insulin Degludec [Tresiba Flextouch U-100] 37 unit SQ HS 09/12/16 [History] Empagliflozin [Jardiance] 25 mg PO DAILY 08/17/18 [History] Insulin Aspart [NovoLOG Flexpen] See Protocol SQ AC-TID 08/17/18 [History] Irbesartan [Avapro] 75 mg PO HS 08/17/18 [History] Metoprolol Tartrate [Lopressor] 50 mg PO BID 08/17/18 [History] Rosuvastatin Calcium [Crestor] 20 mg PO DAILY 08/17/18 [History] Rivaroxaban [Xarelto] 20 mg PO AC-SUPPER #30 tab 12/27/18 [Rx] Follow up Appointment(s)/Referral(s): Carlos Cardenas MD [Primary Care Provider] - 12/30/18 2:00 pm Dominic Ibrahim MD [STAFF PHYSICIAN] - 01/03/19 3:00 pm () Ambulatory/Diagnostic Orders: Complete Blood Count w/diff [LAB.AMB] Time Frame: 1 Week, Location: None Selected Activity/Diet/Wound Care/Special Instructions: Call to make an appt. with GI: Dr. Ibrahim regarding GI bleed hospitalization. Diabetic soft diet. Discharge Disposition: HOME SELF-CARE
== END 2018-12-27 13:54 | disposition home or self-care (01) | DRG 378 ==
LOC: EC 16:29 → 4SSUR 19:02 → 2SICU 23:59 → OBSVTOIN 12-25 08:16 → 4MS4W 12-26 15:58
PROVIDERS: ADMIT Hospitalist; ATTEND Hospitalist
PROC: 30233K1 Transfusion of Nonautologous Frozen Plasma into Peripheral Vein, Percutaneous Approach (ICD-10-PCS; 2018-12-24)
PROC: 0DJD8ZZ Inspection of Lower Intestinal Tract, Via Natural or Artificial Opening Endoscopic (ICD-10-PCS; principal; 2018-12-26 08:08)
DX: K57.31 Diverticulosis of large intestine without perforation or abscess with bleeding (principal); D62 Acute posthemorrhagic anemia; E11.9 Type 2 diabetes mellitus without complications; T45.515A Adverse effect of anticoagulants, initial encounter; T36.95XA Adverse effect of unspecified systemic antibiotic, initial encounter; E78.5 Hyperlipidemia, unspecified; F32.9 Major depressive disorder, single episode, unspecified; G47.33 Obstructive sleep apnea (adult) (pediatric); I10 Essential (primary) hypertension; K64.8 Other hemorrhoids; H35.342 Macular cyst, hole, or pseudohole, left eye; K63.5 Polyp of colon; E03.9 Hypothyroidism, unspecified; Z15.89 Genetic susceptibility to other disease; Z79.01 Long term (current) use of anticoagulants; Z79.4 Long term (current) use of insulin; Z79.82 Long term (current) use of aspirin; Z79.890 Hormone replacement therapy; Z79.899 Other long term (current) drug therapy; Z95.828 Presence of other vascular implants and grafts; Z87.891 Personal history of nicotine dependence; Z86.73 Personal history of transient ischemic attack (TIA), and cerebral infarction without residual deficits; Z86.718 Personal history of other venous thrombosis and embolism; Z86.711 Personal history of pulmonary embolism; Z88.8 Allergy status to other drugs, medicaments and biological substances; Z82.49 Family history of ischemic heart disease and other diseases of the circulatory system; Y92.009 Unspecified place in unspecified non-institutional (private) residence as the place of occurrence of the external cause
CPT/HCPCS: 36415; 36430; 45378; 80048; 80053; 82272; 83605; 84132; 84484; 84597; 85025; 85027; 85610; 85730; 86850; 86900; 86901; 93005; 96360; 96361; 96365; 96366; 99285

== ENCOUNTER 2018-12-30 14:55 | Emergency (ER) | payer MEDICARE, BC ==
[2018-12-30 15:14] VITALS: TEMP 97.8
[2018-12-30] MEDS ORDERED: SODIUM CHLORIDE 0.9% 500 ML 500 ML IV STA (15:14)
[2018-12-30] MEDS ORDERED: PANTOPRAZOLE 40 MG/10 ML VIAL IVP STA (15:14)
[2018-12-30 15:49] LABS: Anisocytosis Slight; Basophils # (A) 0.1 k/uL (0-0.2); Basophils % (A) 1 %; Eosinophils # (A) 0.1 k/uL (0-0.7); Eosinophils % (A) 1 %; HCT 22.2 % (39.0-53.0); Lymphocytes # (A) 0.9 k/uL (1.0-4.8); Lymphocytes % (A) 11 %; MCH 31.4 pg (25.0-35.0); MCHC 33.6 g/dL (31.0-37.0); MCV 93.5 fL (80.0-100.0); Mean Platelet Volume 7.1; Monocytes # (A) 0.4 k/uL (0-1.0); Monocytes % (A) 5 %; Neutrophils # (A) 6.9 k/uL (1.3-7.7); Neutrophils % (A) 82 %; Platelet Count 262 k/uL (150-450); RBC 2.38 m/uL (4.30-5.90); RDW 16.9 % (11.5-15.5); WBC 8.4 k/uL (3.8-10.6)
[2018-12-30 15:51] LABS: HGB 7.5 gm/dL (13.0-17.5)
[2018-12-30 16:00] LABS: Albumin 3.1 g/dL (3.5-5.0); Calcium 8.5 mg/dL (8.4-10.2); Magnesium 1.9 mg/dL (1.6-2.3); Total Bilirubin 0.7 mg/dL (0.2-1.3); Total Protein 5.3 g/dL (6.3-8.2)
[2018-12-30 16:14] LABS: Potassium 4.6 mmol/L (3.5-5.1)
--- NOTE | 2018-12-30 16:26 | ED ---
General Adult HPI <Carlos Lynn - Last Filed: 12/30/18 16:48> - General Source: patient, family, EMS, RN notes reviewed Mode of arrival: EMS Limitations: no limitations <Tremaine Arora - Last Filed: 12/30/18 18:52> - General Chief complaint: GI Bleed Stated complaint: Weakness, GI bleed Time Seen by Provider: 12/30/18 15:05 - History of Present Illness Initial comments: 68-year-old patient presents for rectal bleeding. Patient states he has had several episodes of bright red blood per rectum today. States this is an diarrhea forearm and is mixed with stool. States he has been feeling weak today as well. Patient states he was recently admitted to the hospital for a GI bleed and had a colonoscopy that showed diverticulosis which was thought to likely be the source of blood. At that time patient was in ICU and he was switched from warfarin to Xarelto. She was discharged home 4 days ago and patient was told not to take his anticoagulation for a day after discharge and then did take 3 doses in the past 3 days. States that he did not have any bleeding until today. States that the bleeding has since subsided and his last episode was this morning.Patient has no other complaints at this time including shortness of breath, chest pain, abdominal pain, nausea or vomiting, headache, or visual changes. (Tremaine Arora) - Related Data Home Medications Medication Instructions Recorded Confirmed Levothyroxine Sodium [Synthroid] 100 mcg PO DAILY 06/30/16 12/30/18 Insulin Degludec [Tresiba 37 unit SQ HS 09/12/16 12/30/18 Flextouch U-100] Empagliflozin [Jardiance] 25 mg PO DAILY 08/17/18 12/30/18 Insulin Aspart [NovoLOG Flexpen] See Protocol SQ AC-TID 08/17/18 12/30/18 Irbesartan [Avapro] 75 mg PO HS 08/17/18 12/30/18 Metoprolol Tartrate [Lopressor] 50 mg PO BID 08/17/18 12/30/18 Rosuvastatin Calcium [Crestor] 20 mg PO DAILY 08/17/18 12/30/18 Previous Rx's Medication Instructions Recorded Rivaroxaban [Xarelto] 20 mg PO AC-SUPPER #30 tab 12/27/18 Allergies Allergy/AdvReac Type Severity Reaction Status Date / Time butorphanol [From Stadol] Allergy Severe Unknown Verified 12/30/18 16:06 Review of Systems ROS Other: All systems not noted in ROS Statement are negative. <Carlos Lynn - Last Filed: 12/30/18 16:48> ROS Other: All systems not noted in ROS Statement are negative. <Tremaine Arora - Last Filed: 12/30/18 18:52> ROS Statement: Those systems with pertinent positive or pertinent negative responses have been documented in the HPI. 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 History of Any Multi-Drug Resistant Organisms: None Reported Past Surgical History: Hernia Repair, Orthopedic Surgery, Tonsillectomy Additional Past Surgical History / Comment(s): green filled filter, umbilical hernia repair, L knee arthroscopy, bilateral inguinal hernia repairs, colon oscopy. Past Anesthesia/Blood Transfusion Reactions: Previous Problems w/ Anesthesia Additional Past Anesthesia/Blood Transfusion Reaction / Comment(s): Pt was told by anesthesiologist to never receive Stadol again-had difficulty "getting me out of it." Past Psychological History: Depression Smoking Status: Former smoker Past Alcohol Use History: None Reported Past Drug Use History: None Reported - Past Family History Father Family Medical History: Myocardial Infarction (MO) Additional Family Medical History / Comment(s): Father at the age of 59yrs from a MO Mother Additional Family Medical History / Comment(s): Mother in her mid 60's from CHF <Tremaine Arora - Last Filed: 12/30/18 18:52> General Exam Limitations: no limitations General appearance: alert, in no apparent distress Head exam: Present: atraumatic, normocephalic, normal inspection Eye exam: Present: normal appearance, PERRL, EOMI. Absent: scleral icterus, conjunctival injection, periorbital swelling ENT exam: Present: normal exam, mucous membranes moist Neck exam: Present: normal inspection. Absent: tenderness, meningismus, lymphadenopathy Respiratory exam: Present: normal lung sounds bilaterally. Absent: respiratory distress, wheezes, rales, rhonchi, stridor Cardiovascular Exam: Present: regular rate, normal rhythm, normal heart sounds. Absent: systolic murmur, diastolic murmur, rubs, gallop, clicks GI/Abdominal exam: Present: soft, normal bowel sounds. Absent: distended, tenderness, guarding, rebound, rigid Rectal exam: Present: normal inspection, normal rectal tone. Absent: black stool, bloody stool <Tremaine Arora - Last Filed: 12/30/18 18:52> Course <Carlos Lynn - Last Filed: 12/30/18 16:48> Vital Signs 12/30/18 12/30/18 12/30/18 15:12 15:30 16:00 Temperature 97.8 F Pulse Rate 119 H 116 H 102 H Respiratory 16 15 16 Rate Blood Pressure 112/61 112/61 118/74 O2 Sat by Pulse 96 100 100 Oximetry 12/30/18 12/30/18 16:30 17:00 Temperature Pulse Rate 103 H 101 H Respiratory 15 16 Rate Blood Pressure 122/73 122/70 O2 Sat by Pulse 100 100 Oximetry - Reevaluation(s) Reevaluation #1: 12/30/18 16:48 PA supervision: I personally evaluate this case and did discuss findings with Dr. David patient will be admitted with consultation by GI. I do agree with t he assessment and plan. (Carlos Lynn) Medical Decision Making - Lab Data Result diagrams: 12/30/18 15:00 12/30/18 15:00 <Carlos Lynn - Last Filed: 12/30/18 16:48> - Lab Data Result diagrams: 12/30/18 15:00 12/30/18 15:00 <Tremaine Arora - Last Filed: 12/30/18 18:52> - Medical Decision Making CBC was obtained which shows a hemoglobin of 7.5. CMP is unremarkable. Patient is noted to to have high glucose at 287. He does have a history of IDDM. Occult blood is positive however I did not see any gross hematochezia. Blood type is B-. However at this time patient will not be transfused as he is 7.5 and hemodynamically stable. Aj was discussed with Dr. Ibrahim who recommends transfer to a facility with interventional radiology using the CT angiography for coiling of the bleeding diverticulum. We do not do this at this facility. I spoke with Dr. David she was on board with transfer rather than admitting. I spoke with [facility] emergency department who did speak with interventional radiology and procedure is available, they accept this transfer (Tremaine Arora) - Lab Data Lab Results 12/30/18 12/30/18 12/30/18 Range/Units 15:00 15:00 15:00 WBC 8.4 (3.8-10.6) k/uL RBC 2.38 L (4.30-5.90) m/uL Hgb 7.5 L D (13.0-17.5) gm/dL Hct 22.2 L (39.0-53.0) % MCV 93.5 (80.0-100.0) fL MCH 31.4 (25.0-35.0) pg MCHC 33.6 (31.0-37.0) g/dL RDW 16.9 H (11.5-15.5) % Plt Count 262 (150-450) k/uL Neutrophils % 82 % Lymphocytes % 11 % Monocytes % 5 % Eosinophils % 1 % Basophils % 1 % Neutrophils # 6.9 (1.3-7.7) k/uL Lymphocytes # 0.9 L (1.0-4.8) k/uL Monocytes # 0.4 (0-1.0) k/uL Eosinophils # 0.1 (0-0.7) k/uL Basophils # 0.1 (0-0.2) k/uL Anisocytosis Slight PT (9.0-12.0) sec INR (<1.2) APTT 19.2 L (22.0-30.0) sec Sodium 137 (137-145) mmol/L Potassium 4.6 (3.5-5.1) mmol/L Chloride 106 (98-107) mmol/L Carbon Dioxide 27 (22-30) mmol/L Anion Gap 4 mmol/L BUN 14 (9-20) mg/dL Creatinine 1.02 (0.66-1.25) mg/dL Est GFR (CKD-EPI)AfAm 86 (>60 ml/min/1.73 sqM) Est GFR (CKD-EPI)NonAf 74 (>60 ml/min/1.73 sqM) Glucose 287 H (74-99) mg/dL Plasma Lactic Acid Arya (0.7-2.0) mmol/L Calcium 8.5 (8.4-10.2) mg/dL Magnesium 1.9 (1.6-2.3) mg/dL Total Bilirubin 0.7 (0.2-1.3) mg/dL AST 38 (17-59) U/L ALT 29 (21-72) U/L Alkaline Phosphatase 27 L (38-126) U/L Troponin I (0.000-0.034) ng/mL Total Protein 5.3 L (6.3-8.2) g/dL Albumin 3.1 L (3.5-5.0) g/dL Stool Occult Blood (Negative) Blood Type Blood Type Recheck Bld Type Recheck Status Antibody Screen Spec Expiration Date 12/30/18 12/30/18 12/30/18 Range/Units 15:00 15:00 15:00 WBC (3.8-10.6) k/uL RBC (4.30-5.90) m/uL Hgb (13.0-17.5) gm/dL Hct (39.0-53.0) % MCV (80.0-100.0) fL MCH (25.0-35.0) pg MCHC (31.0-37.0) g/dL RDW (11.5-15.5) % Plt Count (150-450) k/uL Neutrophils % % Lymphocytes % % Monocytes % % Eosinophils % % Basophils % % Neutrophils # (1.3-7.7) k/uL Lymphocytes # (1.0-4.8) k/uL Monocytes # (0-1.0) k/uL Eosinophils # (0-0.7) k/uL Basophils # (0-0.2) k/uL Anisocytosis PT 10.6 (9.0-12.0) sec INR 1.0 (<1.2) APTT (22.0-30.0) sec Sodium (137-145) mmol/L Potassium (3.5-5.1) mmol/L Chloride (98-107) mmol/L Carbon Dioxide (22-30) mmol/L Anion Gap mmol/L BUN (9-20) mg/dL Creatinine (0.66-1.25) mg/dL Est GFR (CKD-EPI)AfAm (>60 ml/min/1.73 sqM) Est GFR (CKD-EPI)NonAf (>60 ml/min/1.73 sqM) Glucose (74-99) mg/dL Plasma Lactic Acid Arya (0.7-2.0) mmol/L Calcium (8.4-10.2) mg/dL Magnesium (1.6-2.3) mg/dL Total Bilirubin (0.2-1.3) mg/dL AST (17-59) U/L ALT (21-72) U/L Alkaline Phosphatase (38-126) U/L Troponin I <0.012 (0.000-0.034) ng/mL Total Protein (6.3-8.2) g/dL Albumin (3.5-5.0) g/dL Stool Occult Blood (Negative) Blood Type B Negative Blood Type Recheck B Neg Bld Type Recheck Status No Antibody Screen NEGATIVE Spec Expiration Date 01/02/2019 - 229912/30/18 12/30/18 Range/Units 15:25 15:27 WBC (3.8-10.6) k/uL RBC (4.30-5.90) m/uL Hgb (13.0-17.5) gm/dL Hct (39.0-53.0) % MCV (80.0-100.0) fL MCH (25.0-35.0) pg MCHC (31.0-37.0) g/dL RDW (11.5-15.5) % Plt Count (150-450) k/uL Neutrophils % % Lymphocytes % % Monocytes % % Eosinophils % % Basophils % % Neutrophils # (1.3-7.7) k/uL Lymphocytes # (1.0-4.8) k/uL Monocytes # (0-1.0) k/uL Eosinophils # (0-0.7) k/uL Basophils # (0-0.2) k/uL Anisocytosis PT (9.0-12.0) sec INR (<1.2) APTT (22.0-30.0) sec Sodium (137-145) mmol/L Potassium (3.5-5.1) mmol/L Chloride (98-107) mmol/L Carbon Dioxide (22-30) mmol/L Anion Gap mmol/L BUN (9-20) mg/dL Creatinine (0.66-1.25) mg/dL Est GFR (CKD-EPI)AfAm (>60 ml/min/1.73 sqM) Est GFR (CKD-EPI)NonAf (>60 ml/min/1.73 sqM) Glucose (74-99) mg/dL Plasma Lactic Acid Arya 1.7 (0.7-2.0) mmol/L Calcium (8.4-10.2) mg/dL Magnesium (1.6-2.3) mg/dL Total Bilirubin (0.2-1.3) mg/dL AST (17-59) U/L ALT (21-72) U/L Alkaline Phosphatase (38-126) U/L Troponin I (0.000-0.034) ng/mL Total Protein (6.3-8.2) g/dL Albumin (3.5-5.0) g/dL Stool Occult Blood Positive (Negative) Blood Type Blood Type Recheck Bld Type Recheck Status Antibody Screen Spec Expiration Date Disposition <Carlos Lynn - Last Filed: 12/30/18 16:48> Is patient prescribed a controlled substance at d/c from ED?: No Time of Disposition: 18:51 - Out of Hospital Transfer - Req. Specs Out of Hospital Transfer - Requested Specifics: Other Emergency Center ([facility]) <Tremaine Arora - Last Filed: 12/30/18 18:52> Clinical Impression: Anemia, GI bleed Disposition: OTHER INSTITUTION NOT DEFINED Condition: Fair Referrals: Carlos Cardenas MD [Primary Care Provider] - 1-2 days
[2018-12-30 16:35] LABS: Prothrombin Time 10.6 sec (9.0-12.0)
[2018-12-30] MEDS ORDERED: NALOXONE 0.4 MG/ML 1 ML VIAL IV PRN (16:49)
[2018-12-30] MEDS ORDERED: SODIUM CHLORIDE 0.9% 1,000 ML IV SCH (17:00)
[2018-12-30 20:41] VITALS: BP 123/70; PULSE 100; RESP 14
== END 2018-12-30 20:46 | disposition other institution (70) ==
LOC: EC 14:55
DX: K92.2 Gastrointestinal hemorrhage, unspecified (principal); D64.9 Anemia, unspecified; R00.0 Tachycardia, unspecified; E11.9 Type 2 diabetes mellitus without complications; G47.30 Sleep apnea, unspecified; E03.9 Hypothyroidism, unspecified; Z79.4 Long term (current) use of insulin; Z79.890 Hormone replacement therapy; Z79.899 Other long term (current) drug therapy; Z88.8 Allergy status to other drugs, medicaments and biological substances; Z87.891 Personal history of nicotine dependence; Z86.73 Personal history of transient ischemic attack (TIA), and cerebral infarction without residual deficits; Z86.718 Personal history of other venous thrombosis and embolism; Z86.711 Personal history of pulmonary embolism; Z88.5 Allergy status to narcotic agent
CPT/HCPCS: 36415; 93005; 86900; 86901; 80053; 83605; 83735; 84484; 85025; 85610; 85730; 86850; 82272; 99285; 96374; 96361; C9113

== ENCOUNTER 2024-10-13 13:06 | Emergency (ER) | payer MEDICARE ==
[2024-10-13 13:15] LABS: Glucose,Whole Blood 351 mg/dL (70-110)
[2024-10-13] MEDS: SODIUM CHLORIDE 0.9% 1,000 ML IV ONE (13:43)
--- NOTE | 2024-10-13 13:53 | ED ---
Weakness HPI - General Chief complaint: Fall Stated complaint: Fall on thinners Time Seen by Provider: 10/13/24 13:16 Source: patient, RN notes reviewed Mode of arrival: EMS Limitations: no limitations - History of Present Illness Initial comments: This is a 74-year-old male who presents to the emergency department for a fall and generalized weakness. Patient has a history of diabetes and states that his sugars have been in the 400s today, however this was also after eating. His sugar is usually in the 100s to 200s. He was getting up off the toilet today and ended up falling into his bathtub. Aside from a small abrasion on his elbow he denies sustaining any injuries. Denies hitting his head or any LOC. He is on Xarelto. Today he states that he has been weak and has no energy. Denies any chest pain or shortness of breath. Also denies any abdominal pain, nausea, or vomiting. MD Complaint: generalized weakness - Related Data Home Medications Medication Instructions Recorded Confirmed Levothyroxine Sodium [Synthroid] 100 mcg PO DAILY 06/30/16 12/30/18 Insulin Degludec [Tresiba 37 unit SQ HS 09/12/16 12/30/18 Flextouch U-100 Pen] Empagliflozin [Jardiance] 25 mg PO DAILY 08/17/18 12/30/18 Insulin Aspart [NovoLOG Flexpen] See Protocol SQ AC-TID 08/17/18 12/30/18 Irbesartan [Avapro] 75 mg PO HS 08/17/18 12/30/18 Metoprolol Tartrate [Lopressor] 50 mg PO BID 08/17/18 12/30/18 Rosuvastatin Calcium [Crestor] 20 mg PO DAILY 08/17/18 12/30/18 Previous Rx's Medication Instructions Recorded Rivaroxaban [Xarelto] 20 mg PO AC-SUPPER #30 tab 12/27/18 Allergies Allergy/AdvReac Type Severity Reaction Status Date / Time butorphanol [From Stadol] Allergy Severe Unknown Verified 10/13/24 13:13 Review of Systems ROS Statement: Those systems with pertinent positive or pertinent negative responses have been documented in the HPI. ROS Other: All systems not noted in ROS Statement are negative. 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 History of Any Multi-Drug Resistant Organisms: None Reported Past Surgical History: Hernia Repair, Orthopedic Surgery, Tonsillectomy Additional Past Surgical History / Comment(s): green filled filter, umbilical hernia repair, L knee arthroscopy, bilateral inguinal hernia repairs, colonoscopy. Past Anesthesia/Blood Transfusion Reactions: Previous Problems w/ Anesthesia Additional Past Anesthesia/Blood Transfusion Reaction / Comment(s): Pt was told by anesthesiologist to never receive Stadol again-had difficulty "getting me out of it." Past Psychological History: Depression Past Alcohol Use History: None Reported Past Drug Use History: None Reported - Past Family History Father Family Medical History: Myocardial Infarction (NH) Additional Family Medical History / Comment(s): Father at the age of 59yrs from a NH Mother Additional Family Medical History / Comment(s): Mother in her mid 60's from CHF General Exam Limitations: no limitations General appearance: alert, in no apparent distress Head exam: Present: atraumatic, normocephalic, normal inspection Respiratory exam: Present: normal lung sounds bilaterally. Absent: respiratory distress, wheezes, rales, rhonchi, stridor Cardiovascular Exam: Present: regular rate, normal rhythm GI/Abdominal exam: Present: soft. Absent: distended, tenderness Neurological exam: Present: alert, oriented X3, CN II-XII intact Psychiatric exam: Present: normal affect, normal mood Skin exam: Present: warm, dry, intact, normal color. Absent: rash Course Vital Signs 10/13/24 10/13/24 10/13/24 13:09 14:30 17:05 Temperature 97.8 F 98.0 F Pulse Rate 118 H 105 H 68 Respiratory 18 18 20 Rate Blood Pressure 163/75 151/74 157/86 O2 Sat by Pulse 98 99 99 Oximetry Medical Decision Making - Medical Decision Making This is a 74 year old male who presents to the emergency department for weakness and a fall. Was pt. sent in by a medical professional or institution? @ -No Did you speak to anyone other than the patient for history? @ -No Did you review nursing and triage notes? @ -Yes, and I agree, it is accurate with regards to the patient's symptoms. Were old charts reviewed? @ -No Differential Diagnosis? @ -Differential Weakness: Hypoglycemia, shock, sepsis, hyponatremia, anemia, infection, NH, ETOH, adverse medicine reaction, overdose, stroke, this is not meant to be an all-inclusive list. EKG interpreted by me (3pts min.)? @ -EKG interpreted by me demonstrating the following: Sinus tachycardia. Ventricular rate 111 bpm, KS interval 163 ms, QRS duration 135 ms, QTc 435 ms. X-rays interpreted by me (1pt min.)? @ -Chest x-ray obtained, my interpretation identifies no localized consolidations or infiltrates. CT interpreted by me (1pt min.)? @ -Not obtained U/S interpreted by me (1pt. min.)? @ -Not obtained What testing was considered but not performed? (CT, X-rays, U/S, labs)? Why? @ -None What meds were considered but not given? Why? @ -None Did you discuss the management of the patient with other professionals? @ -No Did you reconcile home meds? @ -No Was smoking cessation discussed for >3mins.? @ -No Was critical care preformed (if so, how long)? @ -No Were there social determinants of health that impacted care today? How? (Homelessness, low income, unemployed, alcoholism, drug addiction, transportation, low edu. Level, literacy, decrease access to med. care, [facility], rehab)? @ -No Was there de-escalation of care discussed even if they declined? (Discuss DNR or withdrawal of care, Hospice)? @ -No What co-morbidities impacted this encounter? (DM, HTN, Smoking, COPD, CAD, Cancer, CVA, Hep., AIDS, mental health diagnosis, sleep apnea, morbid obesity)? @ -DM Was patient admitted / discharged? @ -Discharged. Lab work demonstrates mild leukocytosis with a white blood cell count of 10.61. Creatinine is 2.76, BUN is 68, and eGFR is 21. Patient does have a history of CKD and states that his GFR is usually in the mid 20s. This has decreased mildly when compared with prior potentially suggestive of dehydration. Blood sugar is 307. Urinalysis negative for signs of infection. Chest x-ray reveals no acute findings. Acetone negative and patient is not in DKA. 1 L of IV fluids administered along with 8 units of insulin. Blood sugar rechecked at 240. Patient does report improvement in symptoms following IV fluids. Advised that he needs to follow-up with his PCP for reevaluation and he was discharged home in stable condition. Case discussed with ED attending Dr. Vásquez. Return precautions reviewed in depth, the patient is instructed to return to the emergency department with any new, worsening, or concerning symptoms. Patient verbalized understanding. Undiagnosed new problem with uncertain prognosis? @ -None Drug Therapy requiring intensive monitoring for toxicity (Heparin, Nitro, Insulin, Cardizem)? @ -None Were any procedures done? @ -None Diagnosis/symptom? @ -Fall, weakness, hyperglycemia Acute, or Chronic, or Acute on Chronic? @ -Acute Uncomplicated (without systemic symptoms) or Complicated (systemic symptoms)? @ -Uncomplicated Side effects of treatment? @ -None Exacerbation, Progression, or Severe Exacerbation] @ -Not applicable Poses a threat to life or bodily function? @ -No - Lab Data Result diagrams: 10/13/24 13:44 10/13/24 13:44 Lab Results 10/13/24 10/13/24 10/13/24 Range/Units 13:13 13:44 13:44 WBC 10.61 H (4.50-10.00) 10*3/uL RBC 3.68 L (4.40-5.60) 10*6/uL Hgb 11.5 L (13.0-17.0) g/dL Hct 33.4 L (39.6-50.0) % MCV 90.8 (80.0-97.0) fL MCH 31.3 (27.0-32.0) pg MCHC 34.4 (32.0-37.0) g/dL Plt Count 229 (140-440) 10*3/uL MPV 11.2 (9.5-12.2) fL Immature Gran % (Auto) 0.6 % Neutrophils % 79.5 % Lymphocytes % 11.3 % Monocytes % 7.8 % Eosinophils % 0.5 % Basophils % 0.3 % Immature Gran # 0.06 H (0.00-0.04) 10*3/uL Neutrophils # 8.44 H (1.80-7.70) 10*3/uL Lymphocytes # 1.20 (0.90-5.00) 10*3/uL Monocytes # 0.83 (0.20-1.00) 10*3/uL Eosinophils # 0.05 (0.04-0.35) 10*3/uL Basophils # 0.03 (0.00-0.10) 10*3/uL PT 11.1 (10.0-12.5) sec INR 1.0 (<1.2) APTT 23.8 (22.0-30.0) sec Sodium (137-145) mmol/L Potassium (3.5-5.1) mmol/L Chloride (98-107) mmol/L Carbon Dioxide (22-30) mmol/L Anion Gap mmol/L BUN (9-20) mg/dL Creatinine (0.66-1.25) mg/dL Est GFR (CKD-EPI)AfAm (>60 ml/min/1.73 sqM) Est GFR (CKD-EPI)NonAf (>60 ml/min/1.73 sqM) Glucose (74-99) mg/dL POC Glucose (mg/dL) 351 H (70-110) mg/dL POC Glu Inspector [employer] ID [place] Aren Plasma Lactic Acid Arya (0.7-2.0) mmol/L Calcium (8.4-10.2) mg/dL Phosphorus (2.5-4.5) mg/dL Magnesium (1.6-2.3) mg/dL Total Bilirubin (0.2-1.3) mg/dL AST (17-59) U/L ALT (4-49) U/L Alkaline Phosphatase (38-126) U/L Total Protein (6.3-8.2) g/dL Albumin (3.5-5.0) g/dL Urine Color Urine Appearance (Clear) Urine pH (5.0-8.0) Ur Specific Booker (1.001-1.035) Urine Protein (Negative) Urine Glucose (UA) (Negative) Urine Ketones (Negative) Urine Blood (Negative) Urine Nitrite (Negative) Urine Bilirubin (Negative) Urine Urobilinogen (<2.0) mg/dL Ur Leukocyte Esterase (Negative) Urine RBC (0-5) /hpf Urine WBC (0-5) /hpf Acetone, Qual (Negative) 10/13/24 10/13/24 10/13/24 Range/Units 13:44 13:44 14:45 WBC (4.50-10.00) 10*3/uL RBC (4.40-5.60) 10*6/uL Hgb (13.0-17.0) g/dL Hct (39.6-50.0) % MCV (80.0-97.0) fL MCH (27.0-32.0) pg MCHC (32.0-37.0) g/dL Plt Count (140-440) 10*3/uL MPV (9.5-12.2) fL Immature Gran % (Auto) % Neutrophils % % Lymphocytes % % Monocytes % % Eosinophils % % Basophils % % Immature Gran # (0.00-0.04) 10*3/uL Neutrophils # (1.80-7.70) 10*3/uL Lymphocytes # (0.90-5.00) 10*3/uL Monocytes # (0.20-1.00) 10*3/uL Eosinophils # (0.04-0.35) 10*3/uL Basophils # (0.00-0.10) 10*3/uL PT (10.0-12.5) sec INR (<1.2) APTT (22.0-30.0) sec Sodium 139 (137-145) mmol/L Potassium 4.9 (3.5-5.1) mmol/L Chloride 104 (98-107) mmol/L Carbon Dioxide 20 L (22-30) mmol/L Anion Gap 15 mmol/L BUN 68 H (9-20) mg/dL Creatinine 2.76 H (0.66-1.25) mg/dL Est GFR (CKD-EPI)AfAm 25 (>60 ml/min/1.73 sqM) Est GFR (CKD-EPI)NonAf 21 (>60 ml/min/1.73 sqM) Glucose 307 H (74-99) mg/dL POC Glucose (mg/dL) (70-110) mg/dL POC Glu Inspector [employer] ID Plasma Lactic Acid Arya 1.8 (0.7-2.0) mmol/L Calcium 9.1 (8.4-10.2) mg/dL Phosphorus 5.0 H (2.5-4.5) mg/dL Magnesium 2.2 (1.6-2.3) mg/dL Total Bilirubin 0.6 (0.2-1.3) mg/dL AST 38 (17-59) U/L ALT 28 (4-49) U/L Alkaline Phosphatase 91 (38-126) U/L Total Protein 6.4 (6.3-8.2) g/dL Albumin 4.0 (3.5-5.0) g/dL Urine Color Colorless Urine Appearance Clear (Clear) Urine pH 5.5 (5.0-8.0) Ur Specific Booker 1.014 (1.001-1.035) Urine Protein 1+ H (Negative) Urine Glucose (UA) 4+ H (Negative) Urine Ketones Negative (Negative) Urine Blood Small H (Negative) Urine Nitrite Negative (Negative) Urine Bilirubin Negative (Negative) Urine Urobilinogen <2.0 (<2.0) mg/dL Ur Leukocyte Esterase Negative (Negative) Urine RBC 2 (0-5) /hpf Urine WBC <1 (0-5) /hpf Acetone, Qual Negative (Negative) 10/13/24 10/13/24 Range/Units 15:18 16:22 WBC (4.50-10.00) 10*3/uL RBC (4.40-5.60) 10*6/uL Hgb (13.0-17.0) g/dL Hct (39.6-50.0) % MCV (80.0-97.0) fL MCH (27.0-32.0) pg MCHC (32.0-37.0) g/dL Plt Count (140-440) 10*3/uL MPV (9.5-12.2) fL Immature Gran % (Auto) % Neutrophils % % Lymphocytes % % Monocytes % % Eosinophils % % Basophils % % Immature Gran # (0.00-0.04) 10*3/uL Neutrophils # (1.80-7.70) 10*3/uL Lymphocytes # (0.90-5.00) 10*3/uL Monocytes # (0.20-1.00) 10*3/uL Eosinophils # (0.04-0.35) 10*3/uL Basophils # (0.00-0.10) 10*3/uL PT (10.0-12.5) sec INR (<1.2) APTT (22.0-30.0) sec Sodium (137-145) mmol/L Potassium (3.5-5.1) mmol/L Chloride (98-107) mmol/L Carbon Dioxide (22-30) mmol/L Anion Gap mmol/L BUN (9-20) mg/dL Creatinine (0.66-1.25) mg/dL Est GFR (CKD-EPI)AfAm (>60 ml/min/1.73 sqM) Est GFR (CKD-EPI)NonAf (>60 ml/min/1.73 sqM) Glucose (74-99) mg/dL POC Glucose (mg/dL) 323 H 240 H (70-110) mg/dL POC Glu Inspector [employer] ID Estrella Bernard [place]ints Bernard Plasma Lactic Acid Arya (0.7-2.0) mmol/L Calcium (8.4-10.2) mg/dL Phosphorus (2.5-4.5) mg/dL Magnesium (1.6-2.3) mg/dL Total Bilirubin (0.2-1.3) mg/dL AST (17-59) U/L ALT (4-49) U/L Alkaline Phosphatase (38-126) U/L Total Protein (6.3-8.2) g/dL Albumin (3.5-5.0) g/dL Urine Color Urine Appearance (Clear) Urine pH (5.0-8.0) Ur Specific Booker (1.001-1.035) Urine Protein (Negative) Urine Glucose (UA) (Negative) Urine Ketones (Negative) Urine Blood (Negative) Urine Nitrite (Negative) Urine Bilirubin (Negative) Urine Urobilinogen (<2.0) mg/dL Ur Leukocyte Esterase (Negative) Urine RBC (0-5) /hpf Urine WBC (0-5) /hpf Acetone, Qual (Negative) - Radiology Data Radiology results: report reviewed, image reviewed Disposition Clinical Impression: Fall, Weakness, Hyperglycemia Disposition: HOME SELF-CARE Instructions (If sedation given, give patient instructions): Fall Prevention for Older Adults (ED), Weakness (ED), Diabetic Hyperglycemia (ED) Additional Instructions: Return to the emergency department with any new, worsening, or concerning symptoms. Try to increase your fluid intake. Contact your primary care provider for a follow-up appointment in the next few days. Is patient prescribed a controlled substance at d/c from ED?: No Referrals: Carlos Cardenas MD [Primary Care Provider] - 1-2 days Time of Disposition: 16:29
[2024-10-13 14:22] LABS: Basophils # (A) 0.03 10*3/uL (0.00-0.10); Basophils % (A) 0.3 %; Eosinophils # (A) 0.05 10*3/uL (0.04-0.35); Eosinophils % (A) 0.5 %; HCT 33.4 % (39.6-50.0); HGB 11.5 g/dL (13.0-17.0); Lymphocytes # (A) 1.20 10*3/uL (0.90-5.00); Lymphocytes % (A) 11.3 %; MCH 31.3 pg (27.0-32.0); MCHC 34.4 g/dL (32.0-37.0); MCV 90.8 fL (80.0-97.0); Monocytes # (A) 0.83 10*3/uL (0.20-1.00); Monocytes % (A) 7.8 %; Neutrophils # (A) 8.44 10*3/uL (1.80-7.70); Neutrophils % (A) 79.5 %; Platelet Count 229 10*3/uL (140-440); RBC 3.68 10*6/uL (4.40-5.60); RDW 14.6 % (11.5-14.5); WBC 10.61 10*3/uL (4.50-10.00)
[2024-10-13 14:52] LABS: INR 1.0 (<1.2); Partial Thromboplastin Time 23.8 sec (22.0-30.0); Prothrombin Time 11.1 sec (10.0-12.5)
[2024-10-13 15:02] LABS: African American GFR (CKD) 25 (>60 ml/min/1.73 sqM); Albumin 4.0 g/dL (3.5-5.0); Anion Gap 15 mmol/L; Blood Urea Nitrogen 68 mg/dL (9-20); Calcium 9.1 mg/dL (8.4-10.2); Carbon Dioxide 20 mmol/L (22-30); Chloride 104 mmol/L (98-107); Glucose 307 mg/dL (74-99); Magnesium 2.2 mg/dL (1.6-2.3); Non-African American GFR(CKD) 21 (>60 ml/min/1.73 sqM); Sodium 139 mmol/L (137-145); Total Protein 6.4 g/dL (6.3-8.2)
[2024-10-13 15:07] LABS: ALT 28 U/L (4-49); AST 38 U/L (17-59); Alkaline Phosphatase 91 U/L (38-126); Potassium 4.9 mmol/L (3.5-5.1)
[2024-10-13 15:19] LABS: Glucose,Whole Blood 323 mg/dL (70-110)
[2024-10-13 15:24] LABS: Bilirubin,Urine Negative (Negative); Blood,Urine Small (Negative); Color,Urine Colorless; Glucose,Urine (UA) 4+ (Negative); Ketones,Urine Negative (Negative); Leukocyte Esterase,Urine Negative (Negative); Nitrite,Urine Negative (Negative); PH, Urine 5.5 (5.0-8.0); Protein,Urine 1+ (Negative); RBC,Urine 2 /hpf (0-5); Specific Gravity,Urine 1.014 (1.001-1.035); Urobilinogen,Urine <2.0 mg/dL (<2.0); WBC,Urine <1 /hpf (0-5)
[2024-10-13] MEDS: INSULIN REGULAR 100 UNIT/ML VIAL (IV) IV ONE (15:24)
--- NOTE | 2024-10-13 16:12 | XR ---
EXAMINATION TYPE: XR chest 2V DATE OF EXAM: 10/13/2024 3:46 PM COMPARISON: 06/30/2016 CLINICAL INDICATION: Male, 74 years old with history of Weakness,, fall, pain TECHNIQUE: XR chest 2V view(s) obtained. FINDINGS: The heart size is normal. The pulmonary vasculature is normal. The lungs are clear. No acute displaced rib fractures evident. No pneumothorax evident. IMPRESSION: 1. No acute pulmonary process. [facility], , 10/13/2024 4:10 PM
[2024-10-13 16:23] LABS: Glucose,Whole Blood 240 mg/dL (70-110)
[2024-10-13 17:09] VITALS: BP 157/86; PULSE 68; RESP 20; TEMP 98
== END 2024-10-13 17:09 | disposition home or self-care (01) ==
LOC: EC 13:06
DX: R53.1 Weakness (principal); E11.65 Type 2 diabetes mellitus with hyperglycemia; Z79.01 Long term (current) use of anticoagulants; Z88.5 Allergy status to narcotic agent; Z88.8 Allergy status to other drugs, medicaments and biological substances; W18.39XA Other fall on same level, initial encounter
CPT/HCPCS: 36415; 71046; 80053; 81001; 82009; 83605; 83735; 84100; 85025; 85610; 85730; 93005; 96360; 99284